=== PATIENT | male | born 1955 | race Caucasian/White ===

== ENCOUNTER → 2017-01-10 | Outpatient (CLI) | payer BC ==
[~2017-01-10] MED LIST: ALBU1AER9 INH; AMIT150T PO; ATRINS INH; BACL20TA PO; CEFD300C2 PO; CHN/1 PO; DXY100 PO; GFNSR600 PO; NEBMAC; NXM/40 PO; OXYC20TA32 PO; OXYC60TA8 PO; PRED10TA PO; RANI150T2 PO; SPRIN/30 INH; SYMIN160 INH; XPNINS1255 INH
--- NOTE | 2017-01-10 10:31 | DIAGNOSTIC IMAGING REPORT ---
CHEST 2 VIEWS ROUTINE CLINICAL HISTORY: Pneumonia. COMPARISON STUDY: Chest radiograph November 10, 2016. FINDINGS: Intrathecal electrodes are noted. Cardiac size is normal. Mediastinal contours are normal. There is no pneumothorax or pleural effusion. There is no evidence of pulmonary edema. Right lower lobe consolidation has nearly completely resolved with there is minimal residual airspace opacity. There is mild lung hyperinflation. IMPRESSION: Near complete resolution of right lower lobe pneumonia. Follow-up chest radiograph in one month is recommended to ensure complete resolution. Electronically signed by: Vivek Zhou M.D. 01/10/2017 10:30 AM Dictated Date/Time: 01/10/2017 10:28 AM
== END | disposition home or self-care (01) ==
LOC: C.RAD1850 10:16
PROVIDERS: ATTEND Allergy & Immunology Allergy
DX: J18.9 Pneumonia, unspecified organism (principal)

== ENCOUNTER 2017-01-30 07:22 | Inpatient (IN) | payer BC, OTHER ==
[~2017-01-30] VITALS: Ht 170.2 cm; Wt 60.0 kg
[2017-01-30] VITALS (8 sets, daily range): BP systolic 131–146; BP diastolic 77–90; PULSE 78–120; TEMP 36.3–37.3; O2SAT 90–99; Ht 170.2 cm; Wt 60.0 kg
[~2017-01-30 07:22] MED LIST changes: -ATRINS INH; -CEFD300C2 PO; -CHN/1 PO; -DXY100 PO; -GFNSR600 PO; -NEBMAC; -PRED10TA PO; -XPNINS1255 INH
[2017-01-30] MEDS ORDERED: SODIUM CHLORIDE 0.9% 1000ML 1,000 ML IV STA (07:50)
[2017-01-30] MEDS ORDERED: IPRATROPIUM BROMIDE NEB SOLN 0.02% 2.5 ML VIAL ONE (07:50)
[2017-01-30] MEDS ORDERED: LEVALBUTEROL 1.25MG/0.5ML NEB INH ONE (07:50)
[2017-01-30] MEDS ORDERED: METHYLPREDNISOLONE 125 MG VIAL IV STA (07:50)
--- NOTE | 2017-01-30 07:50 | EMERGENCY ROOM VISIT NOTE ---
History Report prepared by Cinda: Tiana Stein Under the Supervision of: Dr. Taiwo Pitt D.O. First contact with patient: 07:31 Chief Complaint: RESPIRATORY PROBLEMS Stated Complaint: PNEUMONIA Nursing Triage Summary: I have pnemonia. I am taking antibiotics without relief. Increased sob. patient has audible wheezes in triage. started taking antibiotics on sunday. History of Present Illness The patient is a 61 year old male who presents to the Emergency Room with complaints of constant worsening shortness of breath beginning 2 days ago. The patient states that he has pneumonia and has been taking antibiotics without relief of his symptoms. He reports that he has COPD and quit smoking 5 days ago. He complains of wheezing and chest pain that he has had before with pneumonia. The patient's notes that the patient has been admitted 3 times before for respiratory issues but has not been admitted in the last 3 months. The patient denies being on oxygen at home. The patient notes that he is on Levaquin and Symbicort. Source of History: patient, spouse/significant other Onset: 2 days ago Position: other (respiratory) Quality: other (SOB) Timing: constant, worsening Associated Symptoms: + chest pain Note: Pt complains of wheezing. Review of Systems See above for pertinent positives & negatives. A total of 10 systems reviewed and were otherwise negative. Past Medical & Surgical Medical Problems: (1) COPD (chronic obstructive pulmonary disease) (2) Pneumonia Surgical Problems: (1) History of hernia repair (2) Hx of vasectomy Family History FH: heart disease FHx: lung disease Social History Smoking Status: Former Smoker Alcohol Use: none Drug Use: none Marital Status: Housing Status: lives with family Occupation Status: disabled Current/Historical Medications Scheduled Amitriptyline Hcl (Amitriptyline Hcl), 150 MG PO HS Baclofen (Lioresal), 20 MG PO QID Budesonide/Formoterol Fumarate (Symbicort 160/4.5 Inhaler), 1 PUFFS INH BID Oxycodone Hcl (Oxycontin), 60 MG PO Q12 Oxycodone Hcl (Oxycodone Hcl), 20 MG PO 5XD Ranitidine HCl (Ranitidine HCl), 300 MG PO HS Allergies Coded Allergies: No Known Allergies (Unverified , 01/30/17) pt states NKA Physical Exam Vital Signs Date Time Temp Pulse Resp B/P Pulse Ox O2 Delivery O2 Flow Rate FiO2 01/30/17 08:22 110 28 132/87 93 Room Air 01/30/17 08:10 115 28 134/94 94 Nasal Cannula 4.0 01/30/17 08:02 116 28 134/94 98 Nebulizer 01/30/17 07:58 120 20 93 Nasal Cannula 4.0 01/30/17 07:49 120 32 125/87 93 Nasal Cannula 4.0 01/30/17 07:44 89 Nasal Cannula 4.0 01/30/17 07:38 89 Room Air 01/30/17 07:37 128 01/30/17 07:35 129 32 159/101 87 Room Air 01/30/17 07:35 85 Room Air 01/30/17 07:27 36.5 131 28 125/82 78 Room Air Physical Exam GENERAL: Patient is well appearing and in no acute distress. HEENT: No acute trauma, normocephalic atraumatic, mucous membranes moist, no nasal congestion, no scleral icterus. NECK: No stridor, no adenopathy, no meningismus, trachea is midline. LUNGS: Poor air movement, increased RIGO. HEART: Tachycardic rate and rhythm. No murmurs, rubs, gallops appreciated. ABDOMEN: Soft, nontender, bowel sounds positive, no masses appreciated, no peritonitis. BACK: No midline tenderness, no CVA tenderness EXTREMITIES: Normal motion all extremities, no cyanosis, no edema. NEUROLOGIC: Alert and oriented, no acute motor or sensory deficits, no focal weakness, cranial nerves grossly intact. SKIN: No rash, no jaundice, no diaphoresis. Medical Decision & Procedures ER Provider Diagnostic Interpretation: X ray results and stated below per my interpretation and radiologist interpretation. Chest X-Ray: Shows hyperinflation, no obvious infiltrates. CHEST ONE VIEW PORTABLE FINDINGS: The heart is normal in size. Mid thoracic spinal leads are noted. These remain unchanged in position. No pleural effusions. No pneumothorax. Increased interstitial thickening seen within the periphery of the right lung and left lung base. No new focal lung consolidations. IMPRESSION: Progressive interstitial thickening within the periphery of the right lung and within the left lung base. This could represent an atypical pneumonitis. Follow-up is recommended to ensure resolution. Electronically signed by: Wally Echevarria M.D. 01/30/2017 8:23 AM Dictated Date/Time: 01/30/2017 8:21 AM Laboratory Results 01/30/17 07:40 Red Blood Count 5.02, Mean Corpuscular Volume 89.4, Mean Corpuscular Hemoglobin 31.1, Mean Corpuscular Hemoglobin Concent 34.7, Mean Platelet Volume 9.9, Neutrophils (%) (Auto) 55.7, Lymphocytes (%) (Auto) 19.3, Monocytes (%) (Auto) 13.0, Eosinophils (%) (Auto) 8.3, Basophils (%) (Auto) 1.0, Neutrophils # (Auto ) 6.48, Lymphocytes # (Auto) 2.25, Monocytes # (Auto) 1.51, Eosinophils # (Auto ) 0.96, Basophils # (Auto) 0.12 01/30/17 07:40 Test 01/30/17 07:40 01/30/17 07:43 01/30/17 08:02 White Blood Count 11.63 K/uL (4.8-10.8) Red Blood Count 5.02 M/uL (4.7-6.1) Hemoglobin 15.6 g/dL (14.0-18.0) Hematocrit 44.9 % (42-52) Mean Corpuscular Volume 89.4 fL (80-100) Mean Corpuscular Hemoglobin 31.1 pg (25-34) Mean Corpuscular Hemoglobin Concent 34.7 g/dl (32-36) Platelet Count 349 K/uL (130-400) Mean Platelet Volume 9.9 fL (7.4-10.4) Neutrophils (%) (Auto) 55.7 % Lymphocytes (%) (Auto) 19.3 % Monocytes (%) (Auto) 13.0 % Eosinophils (%) (Auto) 8.3 % Basophils (%) (Auto) 1.0 % Neutrophils # (Auto) 6.48 K/uL (1.4-6.5) Lymphocytes # (Auto) 2.25 K/uL (1.2-3.4) Monocytes # (Auto) 1.51 K/uL (0.11-0.59) Eosinophils # (Auto) 0.96 K/uL (0-0.5) Basophils # (Auto) 0.12 K/uL (0-0.2) RDW Standard Deviation 43.6 fL (36.4-46.3) RDW Coefficient of Variation 13.3 % (11.5-14.5) Immature Granulocyte % (Auto) 2.7 % Immature Granulocyte # (Auto) 0.31 K/uL (0.00-0.02) Anion Gap 9.0 mmol/L (3-11) Est Creatinine Clear Calc Drug Dose 71.1 ml/min Estimated GFR () 101.1 Estimated GFR (Non- 87.3 BUN/Creatinine Ratio 13.5 (10-20) Calcium Level 9.2 mg/dl (8.5-10.1) Total Bilirubin 0.2 mg/dl (0.2-1) Direct Bilirubin < 0.1 mg/dl (0-0.2) Aspartate Amino Transf (AST/SGOT) 22 U/L (15-37) Alanine Aminotransferase (ALT/SGPT) 22 U/L (12-78) Alkaline Phosphatase 103 U/L (45-117) Troponin I < 0.015 ng/ml (0-0.045) C-Reactive Protein 17.30 mg/dl (0-0.29) Total Protein 8.6 gm/dl (6.4-8.2) Albumin 3.1 gm/dl (3.4-5.0) Lipase 62 U/L (73-393) Bedside Blood Gas pH (LAB) 7.40 (7.35-7.45) Bedside Blood Gas pCO2 (LAB) 55 mmHg (35-46) Bedside Blood Gas pO2 (LAB) 47 mmHg (80-95) Bedside Blood Gas HCO3 (LAB) 34 meq/L (19-24) Bedside Blood Gas Total CO2 36 mEq/l (24-31) Bedside Blood Gas Base Excess (LAB) 9.0 meq/L (-9-1.8) Bedside Blood Gas O2 Saturation 81.0 % (90-95) Laboratory results as reviewed by me. Medications Administered Medications (Trade) Dose Ordered Sig/Geoff Route Start Time Stop Time Status Last Admin Dose Admin Levalbuterol (Xopenex 1.25MG/ 0.5ML Neb) 1.25 mg STK-MED ONCE INH 01/30/17 07:50 01/30/17 07:53 DC 01/30/17 07:58 1.25 MG Ipratropium [place] (Atrovent 0.02% 0.5MG/2.5ML Neb) 0.5 mg STK-MED ONCE .ROUTE 01/30/17 07:50 01/30/17 07:53 DC 01/30/17 07:57 0.5 MG Methylprednisolone Sodium Succinate 125 mg 125 mg NOW STAT IV 01/30/17 07:50 01/30/17 07:55 DC 01/30/17 08:01 125 MG Sodium Chloride 1,000 ml @ 999 mls/hr Q1H1M STAT IV 01/30/17 07:50 01/30/17 08:50 01/30/17 07:58 999 MLS/HR Ceftriaxone Sodium/Dextrose (Rocephin Inj/D5 50ml) 70 ml @ 100 mls/hr ONE STAT IV 01/30/17 07:56 01/30/17 08:37 01/30/17 08:21 100 MLS/HR ECG Indication: SOB/dyspnea Rate (beats per minute): 130 Rhythm: sinus tachycardia Findings: nonspecific-ST abn, other (normal axis, normal intervals, poor technical EKG) Comparison ECG Date: 02/17/15 Change: Nonspecific ST segment abnormalities are new. ED Course 0731: The patient was evaluated in room B1. A complete history and physical exam was performed. 0750: Sodium Chloride 1000 ml @ 999 mls/hr IV, Solu-Medrol IV 125mg IV, Ipratropium [place] 0.5mg IV, Levalbuterol 1.25mg INH. 0756: Ceftriaxone Sodium 2000mg/Dextrose 70ml @ 100mls/hr IV. 0810: I discussed the patient's case with Dr. Brown. He will evaluate the patient for further management. 0817: Upon reevaluation, the patient is doing well. Discussed results and treatment plan with the patient. He verbalized understanding and agreement with the treatment plan. The patient will be evaluated for further management. Medical Decision Differential diagnosis: Etiologies such as infections, reactive airway disease, pneumonia, pneumothorax , COPD, CHF, cardiac ischemia, pulmonary embolism, musculoskeletal, gastrointestinal, as well as others were entertained. Consults Time Called: 08 Consulting Physician: Dr. Brown - [facility] Returned Call: 08 I discussed the patient's case with Dr. Brown. He will evaluate the patient for further management. Impression Primary Impression: COPD exacerbation Additional Impressions: Tobacco dependence Tachycardia Chest pain Scribe Attestation The scribe's documentation has been prepared under my direction and personally reviewed by me in its entirety. I confirm that the note above accurately reflects all work, treatment, procedures, and medical decision making performed by me. Departure Information Dispostion Being Evaluated By Hospitalist Referrals Tangela Martinez M.D. (PCP) Patient Instructions My [facility] Problem Qualifiers
[2017-01-30] MEDS ORDERED: CEFTRIAXONE SOD INJ 2,000 MG in DEXTROSE 5% 50ML 50 ML IV STA (07:56)
[2017-01-30 08:00] LABS: ISTAT ARTERIAL BLOOD GAS HCO3 34 meq/L (19-24); ISTAT ARTERIAL BLOOD GAS PCO2 55 mmHg (35-46); ISTAT ARTERIAL BLOOD GAS PO2 47 mmHg (80-95); ISTAT CARBON DIOXIDE 36 mEq/l (24-31)
[2017-01-30 08:11] LABS: BASO ABS # 0.12 K/uL (0-0.2); COMPLETE YES; EOS % 8.3 %; HEMATOCRIT 44.9 % (42-52); IG% 2.7 %; LYMPH % 19.3 %; LYMPH ABS # 2.25 K/uL (1.2-3.4); MEAN CELL VOLUME 89.4 fL (80-100); MEAN CORPUSCULAR HEMOGLOBIN 31.1 pg (25-34); MEAN CORPUSCULAR HGB CONC 34.7 g/dl (32-36); MEAN PLATELET VOLUME 9.9 fL (7.4-10.4); NEUT % 55.7 %; PLATELET COUNT 349 K/uL (130-400); RED BLOOD COUNT 5.02 M/uL (4.7-6.1); WHITE BLOOD COUNT 11.63 K/uL (4.8-10.8)
[2017-01-30 08:18] LABS: ALT/SGPT 22 U/L (12-78); BLOOD UREA NITROGEN 13 mg/dl (7-18); BUN/CREATININE RATIO 13.5 (10-20); CALCIUM 9.2 mg/dl (8.5-10.1); CARBON DIOXIDE 33 mmol/L (21-32); CHLORIDE 98 mmol/L (98-107); CREATININE 0.95 mg/dl (0.60-1.40); GLUCOSE 116 mg/dl (70-99); POTASSIUM 3.8 mmol/L (3.5-5.1); SODIUM 140 mmol/L (136-145)
[2017-01-30 08:22] LABS: ALKALINE PHOSPHATASE 103 U/L (45-117); AST/SGOT 22 U/L (15-37)
--- NOTE | 2017-01-30 08:25 | DIAGNOSTIC IMAGING REPORT ---
CHEST ONE VIEW PORTABLE HISTORY: Pneumonia. COMPARISON: Chest 01/10/2017. FINDINGS: The heart is normal in size. Mid thoracic spinal leads are noted. These remain unchanged in position. No pleural effusions. No pneumothorax. Increased interstitial thickening seen within the periphery of the right lung and left lung base. No new focal lung consolidations. IMPRESSION: Progressive interstitial thickening within the periphery of the right lung and within the left lung base. This could represent an atypical pneumonitis. Follow-up is recommended to ensure resolution. Electronically signed by: Wally Echevarria M.D. 01/30/2017 8:23 AM Dictated Date/Time: 01/30/2017 8:21 AM
[2017-01-30] MEDS ORDERED: AZITHROMYCIN IV 500 MG in DEXTROSE 5% 250ML 250 ML IV STA (08:55)
[2017-01-30] MEDS ORDERED: ALUMINUM/MAGNESIUM/SIMETH (MAALOX MAX) 30 ML UDC PO PRN (09:00)
[2017-01-30] MEDS ORDERED: CEFEPIME IV SCH (09:00)
[2017-01-30] MEDS ORDERED: OXYCODONE HCL 20 MG TABCR (OXYCONTIN) PO SCH (09:00)
[2017-01-30] MEDS ORDERED: POLYETHYLENE (MIRALAX) 17 GM PACK PO PRN (09:00)
[2017-01-30] MEDS ORDERED: ONDANSETRON INJ 2 MG/ML 2 ML VIAL IV PRN (09:00)
[2017-01-30] MEDS ORDERED: CEFTRIAXONE SOD INJ 1,000 MG in DEXTROSE 5% 50ML 50 ML IV SCH (09:00)
[2017-01-30] MEDS ORDERED: TIOTROPIUM BROMIDE 5 PUFF/90 MCG INH INH SCH (09:00)
[2017-01-30] MEDS ORDERED: ACETAMINOPHEN 325 MG TAB PO PRN (09:00)
[2017-01-30] MEDS ORDERED: BUDESONIDE/FORMOTEROL FUMARATE 160/4.5 60 PUFFS/INHALER INH SCH (09:00)
[2017-01-30] MEDS ORDERED: DEXTROSE 5% IV SCH (09:00)
--- NOTE | 2017-01-30 09:11 | History and Physical ---
History & Physical Date & Time of Service: Jan 30, 2017 at 08:55 Chief Complaint: Pneumonia Primary Care Physician: Tangela Martinez M.D. History of Present Illness Source: patient, spouse, clinic records, hospital records This patient is a pleasant 61-year-old male that presents emergency department complaining of worsening shortness of breath over the last week. The patient saw his primary care physician approximately 1 month ago and was treated with Levaquin for pneumonia. His symptoms temporarily got somewhat better. They returned approximately 1 week ago. He was put back on Levaquin 3 days ago at an increased dose with minimal improvement. The patient has a history of COPD. He does not typically wear oxygen at home. He does not take daily steroids. He does not have a nebulizer at home. He has been trying his albuterol MDI with no relief of his symptoms. The patient denies any fever or chills. He has had chest pain in both the anterior and posterior portions of his chest particularly with coughing. The patient's son was also recently sick with similar symptoms. He does admit to also having a sore throat and a runny nose. He has also had intermittent headaches over the last several days. The patient hasn't been admitted a few times in the past for pneumonia. He has never been intubated. Of note, the patient also has been losing weight. He reports approximately 40 pound weight loss in the last 4 years. Past Medical/Surgical History Medical Problems: (1) COPD (chronic obstructive pulmonary disease) Status: Chronic (2) Pneumonia Status: Chronic Chronic lower back pain status post neurostimulator placement GERD Surgical Problems: (1) History of hernia repair Status: Resolved (2) Hx of vasectomy Status: Resolved Family History FH: heart disease FHx: lung disease Social History Smoking Status: Former Smoker (quit smoking 5 days ago. Admits to being a heavy smoker in the past more than 1 pack per day) Alcohol Use: socially Drug Use: none Marital Status: Housing status: lives with significant other Occupational Status: disabled Immunizations History of Influenza Vaccine: Yes History of Tetanus Vaccine?: Yes History of Pneumococcal: No History of Hepatitis B Vaccine: No Multi-Drug Resistant Organisms History of MDRO: No Allergies Coded Allergies: No Known Allergies (Unverified , 01/30/17) pt states NKA Home Medications Scheduled Amitriptyline Hcl (Amitriptyline Hcl), 150 MG PO HS Baclofen (Lioresal), 20 MG PO QID Budesonide/Formoterol Fumarate (Symbicort 160/4.5 Inhaler), 1 PUFFS INH BID Oxycodone Hcl (Oxycontin), 60 MG PO Q12 Oxycodone Hcl (Oxycodone Hcl), 20 MG PO 5XD Ranitidine HCl (Ranitidine HCl), 300 MG PO HS Review of Systems 10 system review performed and negative unless noted in HPI or below Physical Exam Vital Signs Date Time Temp Pulse Resp B/P Pulse Ox O2 Delivery O2 Flow Rate FiO2 01/30/17 08:22 110 28 132/87 93 Room Air 01/30/17 08:10 115 28 134/94 94 Nasal Cannula 4.0 01/30/17 08:02 116 28 134/94 98 Nebulizer 01/30/17 07:58 120 20 93 Nasal Cannula 4.0 01/30/17 07:49 120 32 125/87 93 Nasal Cannula 4.0 01/30/17 07:44 89 Nasal Cannula 4.0 01/30/17 07:38 89 Room Air 01/30/17 07:37 128 01/30/17 07:35 129 32 159/101 87 Room Air 01/30/17 07:35 85 Room Air 01/30/17 07:27 36.5 131 28 125/82 78 Room Air GENERAL: 61-year-old male. Chronically ill in appearance. Appears older than stated age. SKIN: The skin was warm and dry HEAD: Normocephalic atraumatic. MOUTH: Mucous membranes slightly dry NECK: Supple without nuchal rigidity. No lymphadenopathy. No JVD. HEART: Tachycardic, regular rhythm without murmurs gallops or rubs. LUNGS: Diffuse wheezing throughout with decreased breath sounds at the bases bilaterally. Few crackles noted at the right base. Positive tachypnea and accessory muscle use noted. Saturating 95% on 4 L of oxygen per nasal cannula. ABDOMEN: Positive bowel sounds x 4.Soft, nontender, without organomegaly. No guarding or rebound tenderness. MUSCULOSKELETAL: No erythema, or edema noted. No tenderness to palpation. Strength 5/5 throughout. NEURO: Patient was alert and oriented to person place and time. Normal sensation to touch. No focal neurological deficits. Diagnostics Laboratory Results 01/30/17 07:40 Red Blood Count 5.02, Mean Corpuscular Volume 89.4, Mean Corpuscular Hemoglobin 31.1, Mean Corpuscular Hemoglobin Concent 34.7, Mean Platelet Volume 9.9, Neutrophils (%) (Auto) 55.7, Lymphocytes (%) (Auto) 19.3, Monocytes (%) (Auto) 13.0, Eosinophils (%) (Auto) 8.3, Basophils (%) (Auto) 1.0, Neutrophils # (Auto ) 6.48, Lymphocytes # (Auto) 2.25, Monocytes # (Auto) 1.51, Eosinophils # (Auto ) 0.96, Basophils # (Auto) 0.12 Test 01/30/17 07:40 01/30/17 07:43 01/30/17 08:02 01/30/17 08:48 White Blood Count 11.63 K/uL (4.8-10.8) Red Blood Count 5.02 M/uL (4.7-6.1) Hemoglobin 15.6 g/dL (14.0-18.0) Hematocrit 44.9 % (42-52) Mean Corpuscular Volume 89.4 fL (80-100) Mean Corpuscular Hemoglobin 31.1 pg (25-34) Mean Corpuscular Hemoglobin Concent 34.7 g/dl (32-36) Platelet Count 349 K/uL (130-400) Mean Platelet Volume 9.9 fL (7.4-10.4) Neutrophils (%) (Auto) 55.7 % Lymphocytes (%) (Auto) 19.3 % Monocytes (%) (Auto) 13.0 % Eosinophils (%) (Auto) 8.3 % Basophils (%) (Auto) 1.0 % Neutrophils # (Auto) 6.48 K/uL (1.4-6.5) Lymphocytes # (Auto) 2.25 K/uL (1.2-3.4) Monocytes # (Auto) 1.51 K/uL (0.11-0.59) Eosinophils # (Auto) 0.96 K/uL (0-0.5) Basophils # (Auto) 0.12 K/uL (0-0.2) RDW Standard Deviation 43.6 fL (36.4-46.3) RDW Coefficient of Variation 13.3 % (11.5-14.5) Immature Granulocyte % (Auto) 2.7 % Immature Granulocyte # (Auto) 0.31 K/uL (0.00-0.02) Anion Gap 9.0 mmol/L (3-11) Est Creatinine Clear Calc Drug Dose 71.1 ml/min Estimated GFR () 101.1 Estimated GFR (Non- 87.3 BUN/Creatinine Ratio 13.5 (10-20) Calcium Level 9.2 mg/dl (8.5-10.1) Total Bilirubin 0.2 mg/dl (0.2-1) Direct Bilirubin < 0.1 mg/dl (0-0.2) Aspartate Amino Transf (AST/SGOT) 22 U/L (15-37) Alanine Aminotransferase (ALT/SGPT) 22 U/L (12-78) Alkaline Phosphatase 103 U/L (45-117) Troponin I < 0.015 ng/ml (0-0.045) C-Reactive Protein 17.30 mg/dl (0-0.29) Total Protein 8.6 gm/dl (6.4-8.2) Albumin 3.1 gm/dl (3.4-5.0) Lipase 62 U/L (73-393) Bedside Blood Gas pH (LAB) 7.40 (7.35-7.45) Bedside Blood Gas pCO2 (LAB) 55 mmHg (35-46) Bedside Blood Gas pO2 (LAB) 47 mmHg (80-95) Bedside Blood Gas HCO3 (LAB) 34 meq/L (19-24) Bedside Blood Gas Total CO2 36 mEq/l (24-31) Bedside Blood Gas Base Excess (LAB) 9.0 meq/L (-9-1.8) Bedside Blood Gas O2 Saturation 81.0 % (90-95) Results Past 24 Hours Test 01/30/17 07:40 01/30/17 07:43 01/30/17 08:02 Range/Units White Blood Count 11.63 4.8-10.8 K/uL Red Blood Count 5.02 4.7-6.1 M/uL Hemoglobin 15.6 14.0-18.0 g/dL Hematocrit 44.9 42-52 % Mean Corpuscular Volume 89.4 80-100 fL Mean Corpuscular Hemoglobin 31.1 25-34 pg Mean Corpuscular Hemoglobin Concent 34.7 32-36 g/dl Platelet Count 349 130-400 K/uL Mean Platelet Volume 9.9 7.4-10.4 fL Neutrophils (%) (Auto) 55.7 % Lymphocytes (%) (Auto) 19.3 % Monocytes (%) (Auto) 13.0 % Eosinophils (%) (Auto) 8.3 % Basophils (%) (Auto) 1.0 % Neutrophils # (Auto) 6.48 1.4-6.5 K/uL Lymphocytes # (Auto) 2.25 1.2-3.4 K/uL Monocytes # (Auto) 1.51 0.11-0.59 K/uL Eosinophils # (Auto) 0.96 0-0.5 K/uL Basophils # (Auto) 0.12 0-0.2 K/uL RDW Standard Deviation 43.6 36.4-46.3 fL RDW Coefficient of Variation 13.3 11.5-14.5 % Immature Granulocyte % (Auto) 2.7 % Immature Granulocyte # (Auto) 0.31 0.00-0.02 K/uL Sodium Level 140 136-145 mmol/L Potassium Level 3.8 3.5-5.1 mmol/L Chloride Level 98 98-107 mmol/L Carbon Dioxide Level 33 21-32 mmol/L Anion Gap 9.0 3-11 mmol/L Blood Urea Nitrogen 13 7-18 mg/dl Creatinine 0.95 0.60-1.40 mg/dl Est Creatinine Clear Calc Drug Dose 71.1 ml/min Estimated GFR () 101.1 Estimated GFR (Non- 87.3 BUN/Creatinine Ratio 13.5 10-20 Random Glucose 116 70-99 mg/dl Calcium Level 9.2 8.5-10.1 mg/dl Total Bilirubin 0.2 0.2-1 mg/dl Direct Bilirubin < 0.1 0-0.2 mg/dl Aspartate Amino Transf (AST/SGOT) 22 15-37 U/L Alanine Aminotransferase (ALT/SGPT) 22 12-78 U/L Alkaline Phosphatase 103 45-117 U/L Troponin I < 0.015 0-0.045 ng/ml C-Reactive Protein 17.30 0-0.29 mg/dl Total Protein 8.6 6.4-8.2 gm/dl Albumin 3.1 3.4-5.0 gm/dl Lipase 62 73-393 U/L Bedside Blood Gas pH (LAB) 7.40 7.35-7.45 Bedside Blood Gas pCO2 (LAB) 55 35-46 mmHg Bedside Blood Gas pO2 (LAB) 47 80-95 mmHg Bedside Blood Gas HCO3 (LAB) 34 19-24 meq/L Bedside Blood Gas Total CO2 36 24-31 mEq/l Bedside Blood Gas Base Excess (LAB) 9.0 -9-1.8 meq/L Bedside Blood Gas O2 Saturation 81.0 90-95 % Microbiology Results 01/30/17 Blood Culture, Received Pending 01/30/17 Blood Culture, Received Pending Diagnostic Radiology CHEST ONE VIEW PORTABLE HISTORY: Pneumonia. COMPARISON: Chest 01/10/2017. FINDINGS: The heart is normal in size. Mid thoracic spinal leads are noted. These remain unchanged in position. No pleural effusions. No pneumothorax. Increased interstitial thickening seen within the periphery of the right lung and left lung base. No new focal lung consolidations. IMPRESSION: Progressive interstitial thickening within the periphery of the right lung and within the left lung base. This could represent an atypical pneumonitis. Follow-up is recommended to ensure resolution. Electronically signed by: Wally Echevarria M.D. 01/30/2017 8:23 AM Dictated Date/Time: 01/30/2017 8:21 AM The status of this report is Signed. Draft = Not yet reviewed or approved by Radiologist. Signed = Reviewed and approved by Radiologist. Impression Assessment and Plan 61-year-old male presents emergency department with a nonproductive cough and shortness of breath, chest x-ray consistent with an atypical pneumonitis. Acute on chronic hypoxic respiratory failure secondary to pneumonia/COPD exacerbation-not responding to outpatient therapy with Levaquin -Admit to medical floor -Continuous pulse ox -f/u influenza -Duonebs every 4 hrs scheduled, every 2 hrs prn -solumedrol 40 mg q 8 hr -continue Cefepime 1 G IV BID + Azithromycin 500 mg IV daily -continue O2 to keep sat >88% -Continue outpatient Spiriva and Symbicort -Patient will need set up for a nebulizer at home -will also check echo Chronic lower back pain-medications verified. Patient follows with [facility] pain management -Continue outpatient regimen as follows: Oxycodone 20 mg up to 5 times daily OxyContin 60 mg BID Baclofen 20 mg 4 times daily GERD -Pantoprazole 40 mg daily while in house -Upon discharge, resume ranitidine 300 mg HS DVT prophylaxis -Lovenox 40 mg subQ daily -TEDS, SCDs CODE STATUS -LEVEL I FULL CODE DISPO -Anticipate DC home with self-care -Patient will need a nebulizer at home PA Physician Supervision Note: I interviewed and examined the patient. Discussed with Dr. Nkechi Ignacio PAC and agree with findings and plan as documented in the note. 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 Documented By: Kevin Aaron Level of Care Med/Surg VTE Prophylaxis VTE Risk Assessment Done? Y/N: Yes Risk Level: Low Given or contraindicated: Enoxaparin (Lovenox)SQ, T.E.D. Stockings, SCD's
[2017-01-30 09:41] LABS: INFLUENZA A PCR Neg for Influ A (NEG); INFLUENZA B PCR Neg for Influ B (NEG)
[2017-01-30] MEDS ORDERED: [UNRECOGNIZED DRUG - REMARK] PRN (10:45)
[2017-01-30] MEDS ORDERED: AZITHROMYCIN 500 MG / D5W 250 ML IV SCH ×2 (11:00)
[2017-01-30] MEDS: ALBUT/IPRATROP 3MG/0.5MG NEB 3 ML VIAL INH SCH ×3 (11:19→20:05)
[2017-01-30] MEDS: OXYCODONE HCL IR 5 MG TAB (IMMEDIATE RELEASE) PO PRN ×3 (11:42→21:30)
[2017-01-30] MEDS: BACLOFEN TAB 20 MG TAB PO SCH ×3 (11:42→21:31)
[2017-01-30 12:12] LABS: INR 1.1 (0.9-1.1); PARTIAL THROMBOPLASTIN RATIO 1.2; PROTHROMBIN TIME (PATIENT) 11.6 SECONDS (9.0-12.0)
[2017-01-30 12:32] LABS: URINE APPEARANCE CLEAR (CLEAR); URINE BILIRUBIN NEG (NEG); URINE COLOR DK YELLOW; URINE EPITHELIAL CELL AUTO 0-5 /lpf (0-5); URINE NITRITE NEG (NEG); URINE PH 5.5 (4.5-7.5); URINE SPECIFIC GRAVITY 1.035 (1.000-1.030); UROBILINOGEN NEG (NEG)
[2017-01-30 12:38] LABS: MANUAL MICROSCOPIC REQUIRED? NO; REVIEW REQ? NO
[2017-01-30] MEDS: ENOXAPARIN 40 MG/0.4 ML SYR SQ SCH (14:00)
[2017-01-30] MEDS: DOXYCYCLINE HYCLATE 100 MG CAP PO SCH ×2 (14:24→21:32)
--- NOTE | 2017-01-30 15:28 | PULMONARY CONSULTATION ---
DATE OF CONSULTATION: 01/30/2017 TIME: 02:15 p.m. PRIMARY CARE PROVIDER: Tangela Martinez MD REPORT OF CONSULTATION: The patient was seen in room #410. She is a 61-year-old male with a history of severe COPD. I have seen this patient in my office. His baseline FEV1 is only 28% of predicted. He is currently complaining of severe shortness of breath. This has been building up over the course of a couple of days. He has been having recurrent problems, however, for a few months. In October, he was seen in our office with breathing difficulty and an x-ray showed a pneumonic infiltrate on the right side in the mid lung field area. Followup x-ray showed clearance or near clearance of the pneumonia. He then states that he saw his family doctor 3 weeks ago and was told that he had pneumonia. He apparently had gone to the urgent care through [facility]. Apparently, he was given some antibiotics at that time. I was able to find an x-ray done January 10 and I am suspecting that was the case. That did show near complete resolution of the right lower lobe pneumonia seen previously. That x-ray appears to have been ordered through our office. The patient insists, however, he had an x-ray through [facility], but it was done through the [facility] system. I cannot document that with certainty. The patient has a history of a lung nodule and indeed, we were going to do a CAT scan in December. However, the patient canceled appointments on 3 different occasions. He tells me that this may have been related to the fact we have to collect an extra fee as a specialist that is not covered by his insurance. This morning, he was very short of breath. He states he told his that they just had to go to the ER. In the ER, he was tachycardic with a heart rate of 130. He was tachypneic with a respiratory rate of 32. Oxygen saturation was as low as 78%. He is feeling somewhat better now. He was bringing up thick yellow sputum. He has not coughed blood at any time. The sputum has been for 5 or 6 days. The patient does have a history of chronic respiratory failure. He was hospitalized with an exacerbation of COPD back in February of 2015. The patient has been a long-term smoker. This has been about 1-1/2 packs per day for 44 years. He states he has not smoked now for 6 days. PAST SURGICAL HISTORY: 1. Hernia repair in 2002. 2. Vasectomy in 1982. 3. Neurostimulator inserted into his back. PAST MEDICAL HISTORY: 1. Degenerative joint disease of the spine. 2. GERD. 3. Spinal stenosis. FAMILY HISTORY: Father is living, age 87, has valvular heart disease and COPD. Mother is living, age 83 and has obesity. 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 He states he suffered an injury in the . He has been disabled since 2004. MEDICATIONS: At home, 1. Amitriptyline 150 mg at bedtime. 2. Baclofen 20 mg q.i.d. 3. Symbicort 160/4.5 one puff b.i.d. 4. OxyContin 60 mg q. 12 hours. 5. Oxycodone 20 mg 5 times per day. 6. Ranitidine 300 mg at bedtime. 7. Spiriva 1 daily. 8. ProAir p.r.n. ALLERGIES: She has no known allergies. REVIEW OF SYSTEMS: GENERAL: The patient's energy level has been very poor. NEUROLOGIC: He denies syncope or near syncope. OPHTHALMIC: Denies visual complaints. ENT: Denies nasal congestion or coryza. CHEST: He states that he has had some chest pains today associated with coughing and deep breathing. GASTROINTESTINAL: He has had weight loss in the past, but he says that has stabilized. He has lost about 40 pounds over 4 years or so. Denies bowel complaints. GENITOURINARY: His urinary stream has been very poor. He was wondering he might have prostate problems. His urination stops and starts. He is taking Spiriva, which can affect the urinary symptoms. EXTREMITIES: There has been no edemas. DERMATOLOGIC: Denies rashes. Remainder of the review of systems is negative. PHYSICAL EXAMINATION: GENERAL: The patient is a 61-year-old male who was cooperative, alert and oriented. He was fairly comfortable at rest. He is afebrile. HEENT: Pupils were reactive. Nares were clear. Mouth exam was negative. NECK: Palpation of the neck reveals no lymph nodes. HEART: Rate currently is 100 per minute. Blood pressure 133/84. Respiratory rate 22 breaths per minute. LUNGS: Lung rdz revealed severely diminished breath sounds. There was modest rhonchi heard on expiration and there was marked prolongation to the expiratory phase of respiration. Saturation is 93% on 3 liters. ABDOMEN: Soft. Bowel sounds were present. There was no tenderness to palpation, masses or organomegaly. EXTREMITIES: Showed no cyanosis, clubbing or edema. The patient's chest x-ray showed some interstitial thickening in the periphery of the right lung and within the left base. It was unclear if this represented an acute pneumonitis or not. LABORATORY DATA: CBC showed a white count of 11.63. Hemoglobin 15.6. Platelets 349,000. INR was 1.1 and PTT was 32.4. Urinalysis showed +1 protein, but was otherwise unremarkable. Blood gas showed a pH of 7.40 with a pCO2 of 55 and a pO2 of 47 on a nonspecified amount of oxygen. Electrolytes show sodium 140, potassium 3.8, chloride 98, and bicarbonate 33. BUN 13 and creatinine 0.95. Blood sugar 116. C-reactive protein was severely elevated at 17.3. Troponin was negative. TSH was 1.2. Flu test was negative. IMPRESSIONS: 1. Acute respiratory failure with hypoxia and hypercarbia. 2. Chronic obstructive pulmonary disease with exacerbation. 3. Lung nodule by history. 4. Possible benign prostatic hypertrophy. COMMENTS AND RECOMMENDATIONS: I believe the Spiriva should be discontinued. This will give him a chance to if his urinary flow improves over the next 2 weeks. Would substitute with DuoNebs by nebulizer. I think the patient probably would benefit from having a nebulizer at home and he seems open to this. He is on cefepime for antibiotics. He is on methylprednisolone 40 mg IV q. 8 hours. The Symbicort is only at 1 puff b.i.d. and I will increase that to 2 puffs b.i.d. The patient is not at all open to having home oxygen. I explained to him that it can best be addressed at the time of discharge. He indicated he would refuse any oxygen. We had planned to do a CAT scan of the chest on the patient last month, but he kept canceling. In light of this, we will do the CAT scan while he is here in the hospital to evaluate the previously seen nodule as well as to evaluate any other problems he might be having. He denies any allergies. Thank you for asking me to assist in his care.
[2017-01-30] MEDS ORDERED: OPTIRAY 320 IV PRN (15:30)
--- NOTE | 2017-01-30 16:13 | DIAGNOSTIC IMAGING REPORT ---
CHEST CTA for PULMONARY ARTERIES CT DOSE: 336.36 mGy.cm HISTORY: Chest pain dyspnea TECHNIQUE: Multiaxial CT images of the chest were performed following the intravenous administration of contrast to evaluate the pulmonary arteries. Maximal intensity projection images were also obtained. COMPARISON STUDY: 12/31/2015 FINDINGS: Images are negative for pulmonary embolus. No evidence for cardiac enlargement. Poorly defined right lower lobe parenchymal infiltrate. Baseline emphysematous change. Slight peribronchial thickening throughout. Chronic apical fibrotic change. Minimal dependent bibasilar atelectasis. IMPRESSION: 1. Study is negative for pulmonary embolus. 2. Mild parenchymal infiltrate right lower lobe superimposed upon chronic peribronchial and interstitial change Electronically signed by: Rubén Chavarria M.D. 01/30/2017 4:12 PM Dictated Date/Time: 01/30/2017 4:08 PM
[2017-01-30] MEDS: METHYLPREDNISOLONE IV 40 MG in SYRINGE 0 ML IV SCH ×2 (17:34→23:32)
[2017-01-30] MEDS: OXYCODONE HCL 20 MG TABCR (OXYCONTIN) PO PRN (21:29)
[2017-01-30] MEDS: CEFEPIME IV 2000 MG in DEXTROSE 5% 100ML IV SCH (21:29)
[2017-01-30] MEDS: RANITIDINE HCL 150 MG TAB PO SCH (21:31)
[2017-01-30] MEDS: BUDESONIDE/FORMOTEROL FUMARATE 160/4.5 60 PUFFS/INHALER INH SCH (21:33)
[2017-01-30] MEDS ORDERED: AMITRIPTYLINE HCL 100 MG TAB PO ONE (22:44)
[2017-01-31] VITALS (9 sets, daily range): BP systolic 129–161; BP diastolic 82–92; PULSE 61–125; TEMP 36.5–37; O2SAT 92–95
[2017-01-31 06:33] LABS: BASO % 0.1 %; BASO ABS # 0.01 K/uL (0-0.2); COMPLETE YES; EOS % 0.1 %; HEMATOCRIT 35.2 % (42-52); IG% 1.9 %; LYMPH % 14.2 %; LYMPH ABS # 1.26 K/uL (1.2-3.4); MEAN CELL VOLUME 85.2 fL (80-100); MEAN CORPUSCULAR HEMOGLOBIN 29.5 pg (25-34); MEAN CORPUSCULAR HGB CONC 34.7 g/dl (32-36); MEAN PLATELET VOLUME 9.3 fL (7.4-10.4); NEUT % 78.7 %; PLATELET COUNT 274 K/uL (130-400); RED BLOOD COUNT 4.13 M/uL (4.7-6.1); WHITE BLOOD COUNT 8.86 K/uL (4.8-10.8)
[2017-01-31 07:00] LABS: BUN/CREATININE RATIO 19.1 (10-20); CALCIUM 8.6 mg/dl (8.5-10.1); CREATININE 0.66 mg/dl (0.60-1.40); POTASSIUM 4.5 mmol/L (3.5-5.1)
[2017-01-31] MEDS: ALBUT/IPRATROP 3MG/0.5MG NEB 3 ML VIAL INH SCH ×2 (07:30→10:53)
[2017-01-31] MEDS ORDERED: VARENICLINE 0.5 MG TAB PO SCH (08:00)
[2017-01-31] MEDS ORDERED: VARENICLINE (CHANTIX) 1 MG TAB PO SCH (08:00)
[2017-01-31] MEDS: DOXYCYCLINE HYCLATE 100 MG CAP PO SCH ×2 (08:16→20:32)
[2017-01-31] MEDS: BUDESONIDE/FORMOTEROL FUMARATE 160/4.5 60 PUFFS/INHALER INH SCH ×2 (08:16→19:45)
[2017-01-31] MEDS: OXYCODONE HCL 20 MG TABCR (OXYCONTIN) PO PRN ×2 (08:16→20:29)
[2017-01-31] MEDS: BACLOFEN TAB 20 MG TAB PO SCH ×4 (08:16→20:31)
[2017-01-31] MEDS: METHYLPREDNISOLONE IV 40 MG in SYRINGE 0 ML IV SCH ×2 (08:17→16:44)
[2017-01-31] MEDS: CEFEPIME IV 2000 MG in DEXTROSE 5% 100ML IV SCH ×2 (08:18→19:44)
--- NOTE | 2017-01-31 11:25 | Hospitalist Progress Note ---
Hospitalist Progress Note Date of Service Jan 31, 2017. (Nkechi Ignacio PA-C) Subjective Pt evaluation today including: conversation w/ patient, physical exam, chart review, lab review, review of studies, review of inpatient medication list Continues to complain of shortness of breath particularly with mild exertion. Nonproductive cough. No fever or chills. Denies chest pain, heart palpitations or dizziness. Additional Comments: 6 system review negative. Please see pertinent positives in the history of present illness section. (Nkechi Ignacio PA-C) Objective Vital Signs Date Time Temp Pulse Resp B/P Pulse Ox O2 Delivery O2 Flow Rate FiO2 01/31/17 10:53 125 16 94 Nasal Cannula 3.0 01/31/17 08:00 Nasal Cannula 3.0 01/31/17 07:30 103 16 95 Nasal Cannula 3.0 01/31/17 07:26 92 Nasal Cannula 2.0 01/31/17 07:16 36.5 104 16 129/82 92 Nasal Cannula 2.0 01/31/17 00:15 Nasal Cannula 3.0 01/30/17 23:29 37.3 115 16 131/77 90 Room Air 01/30/17 20:06 112 12 93 Nasal Cannula 3.0 01/30/17 16:10 99 Nasal Cannula 3.0 01/30/17 16:01 36.3 98 16 146/90 99 Nasal Cannula 8.0 01/30/17 15:23 78 12 94 Nasal Cannula 3.0 01/30/17 11:46 36.7 98 20 133/84 93 Nasal Cannula 3.0 01/30/17 11:20 108 12 95 Nasal Cannula 3.0 (Nkechi Ignacio PA-C) Physical Exam General Appearance: + mild distress (mild respiratory distress) Eyes: EOMI Neck: no JVD Respiratory/Chest: + pertinent finding (wheezing and coarse breath sounds diffusely. No crackles auscultated at the bases bilaterally.) Cardiovascular: + tachycardia Abdomen: normal bowel sounds, non tender, soft Extremities: non-tender, no pedal edema Neurologic/Psychiatric: no motor/sensory deficits, oriented x 3 Skin: warm/dry (Nkechi Ignacio PA-C) Laboratory Results 01/31/17 06:00 Red Blood Count 4.13, Mean Corpuscular Volume 85.2, Mean Corpuscular Hemoglobin 29.5, Mean Corpuscular Hemoglobin Concent 34.7, Mean Platelet Volume 9.3, Neutrophils (%) (Auto) 78.7, Lymphocytes (%) (Auto) 14.2, Monocytes (%) (Auto) 5.0, Eosinophils (%) (Auto) 0.1, Basophils (%) (Auto) 0.1, Neutrophils # (Auto) 6.97, Lymphocytes # (Auto) 1.26, Monocytes # (Auto) 0.44, Eosinophils # (Auto) 0.01, Basophils # (Auto) 0.01 01/31/17 06:00 Test 01/30/17 11:46 01/30/17 12:00 01/31/17 06:00 Prothrombin Time 11.6 SECONDS (9.0-12.0) Prothromb Time International Ratio 1.1 (0.9-1.1) Activated Partial Thromboplast Time 32.4 SECONDS (21.0-31.0) Partial Thromboplastin Ratio 1.2 D-Dimer 950 ug/L FEU (0-500) Urine Color DK YELLOW Urine Appearance CLEAR (CLEAR) Urine pH 5.5 (4.5-7.5) Urine Specific Gattman 1.035 (1.000-1.030) Urine Protein 1+ (NEG) Urine Glucose (UA) NEG (NEG) Urine Ketones NEG (NEG) Urine Occult Blood NEG (NEG) Urine Nitrite NEG (NEG) Urine Bilirubin NEG (NEG) Urine Urobilinogen NEG (NEG) Urine Leukocyte Esterase NEG (NEG) Urine WBC (Auto) 1-5 /hpf (0-5) Urine RBC (Auto) 0-4 /hpf (0-4) Urine Hyaline Casts (Auto) 1-5 /lpf (0-5) Urine Epithelial Cells (Auto) 0-5 /lpf (0-5) Urine Bacteria (Auto) NEG (NEG) White Blood Count 8.86 K/uL (4.8-10.8) Red Blood Count 4.13 M/uL (4.7-6.1) Hemoglobin 12.2 g/dL (14.0-18.0) Hematocrit 35.2 % (42-52) Mean Corpuscular Volume 85.2 fL (80-100) Mean Corpuscular Hemoglobin 29.5 pg (25-34) Mean Corpuscular Hemoglobin Concent 34.7 g/dl (32-36) Platelet Count 274 K/uL (130-400) Mean Platelet Volume 9.3 fL (7.4-10.4) Neutrophils (%) (Auto) 78.7 % Lymphocytes (%) (Auto) 14.2 % Monocytes (%) (Auto) 5.0 % Eosinophils (%) (Auto) 0.1 % Basophils (%) (Auto) 0.1 % Neutrophils # (Auto) 6.97 K/uL (1.4-6.5) Lymphocytes # (Auto) 1.26 K/uL (1.2-3.4) Monocytes # (Auto) 0.44 K/uL (0.11-0.59) Eosinophils # (Auto) 0.01 K/uL (0-0.5) Basophils # (Auto) 0.01 K/uL (0-0.2) RDW Standard Deviation 40.0 fL (36.4-46.3) RDW Coefficient of Variation 12.8 % (11.5-14.5) Immature Granulocyte % (Auto) 1.9 % Immature Granulocyte # (Auto) 0.17 K/uL (0.00-0.02) Anion Gap 7.0 mmol/L (3-11) Est Creatinine Clear Calc Drug Dose 102.3 ml/min Estimated GFR () 122.7 Estimated GFR (Non- 105.8 BUN/Creatinine Ratio 19.1 (10-20) Calcium Level 8.6 mg/dl (8.5-10.1) Magnesium Level 2.0 mg/dl (1.8-2.4) Last 24 Hours Test 01/30/17 11:46 01/30/17 12:00 01/31/17 06:00 Prothrombin Time 11.6 SECONDS Prothromb Time International Ratio 1.1 Activated Partial Thromboplast Time 32.4 SECONDS Partial Thromboplastin Ratio 1.2 D-Dimer 950 ug/L FEU Urine Color DK YELLOW Urine Appearance CLEAR Urine pH 5.5 Urine Specific Gattman 1.035 Urine Protein 1+ Urine Glucose (UA) NEG Urine Ketones NEG Urine Occult Blood NEG Urine Nitrite NEG Urine Bilirubin NEG Urine Urobilinogen NEG Urine Leukocyte Esterase NEG Urine WBC (Auto) 1-5 /hpf Urine RBC (Auto) 0-4 /hpf Urine Hyaline Casts (Auto) 1-5 /lpf Urine Epithelial Cells (Auto) 0-5 /lpf Urine Bacteria (Auto) NEG White Blood Count 8.86 K/uL Red Blood Count 4.13 M/uL Hemoglobin 12.2 g/dL Hematocrit 35.2 % Mean Corpuscular Volume 85.2 fL Mean Corpuscular Hemoglobin 29.5 pg Mean Corpuscular Hemoglobin Concent 34.7 g/dl Platelet Count 274 K/uL Mean Platelet Volume 9.3 fL Neutrophils (%) (Auto) 78.7 % Lymphocytes (%) (Auto) 14.2 % Monocytes (%) (Auto) 5.0 % Eosinophils (%) (Auto) 0.1 % Basophils (%) (Auto) 0.1 % Neutrophils # (Auto) 6.97 K/uL Lymphocytes # (Auto) 1.26 K/uL Monocytes # (Auto) 0.44 K/uL Eosinophils # (Auto) 0.01 K/uL Basophils # (Auto) 0.01 K/uL RDW Standard Deviation 40.0 fL RDW Coefficient of Variation 12.8 % Immature Granulocyte % (Auto) 1.9 % Immature Granulocyte # (Auto) 0.17 K/uL Sodium Level 139 mmol/L Potassium Level 4.5 mmol/L Chloride Level 99 mmol/L Carbon Dioxide Level 33 mmol/L Anion Gap 7.0 mmol/L Blood Urea Nitrogen 13 mg/dl Creatinine 0.66 mg/dl Est Creatinine Clear Calc Drug Dose 102.3 ml/min Estimated GFR () 122.7 Estimated GFR (Non- 105.8 BUN/Creatinine Ratio 19.1 Random Glucose 135 mg/dl Calcium Level 8.6 mg/dl Magnesium Level 2.0 mg/dl (Nkechi Ignacio, SÁNCHEZ-C) Diagnostic Results CHEST CTA for PULMONARY ARTERIES CT DOSE: 336.36 mGy.cm HISTORY: Chest pain dyspnea TECHNIQUE: Multiaxial CT images of the chest were performed following the intravenous administration of contrast to evaluate the pulmonary arteries. Maximal intensity projection images were also obtained. COMPARISON STUDY: 12/31/2015 FINDINGS: Images are negative for pulmonary embolus. No evidence for cardiac enlargement. Poorly defined right lower lobe parenchymal infiltrate. Baseline emphysematous change. Slight peribronchial thickening throughout. Chronic apical fibrotic change. Minimal dependent bibasilar atelectasis. IMPRESSION: 1. Study is negative for pulmonary embolus. 2. Mild parenchymal infiltrate right lower lobe superimposed upon chronic peribronchial and interstitial change Electronically signed by: Rubén Chavarria M.D. 01/30/2017 4:12 PM Dictated Date/Time: 01/30/2017 4:08 PM The status of this report is Signed. Draft = Not yet reviewed or approved by Radiologist. Signed = Reviewed and approved by Radiologist. (Nkechi Ignacio PA-C) Assessment and Plan 61-year-old male presents emergency department with a nonproductive cough and shortness of breath, chest x-ray consistent with an atypical pneumonitis. Acute on chronic hypoxic respiratory failure secondary to pneumonia/COPD exacerbation-failed outpt therapy with Levaquin -Flu neg -Continue cefepime -Azithromycin changed to doxycycline yesterday for atypical coverage. Was not tolerating azithro -change nebs to xopenex/atrovent every 4 hrs scheduled, every 2 hrs prn (for tachycardia) -solumedrol 40 mg q 8 hr -Pulm consult-->CT chest ordered. No PE. Spiriva d/c'ed d/t urinary sx -continue O2 to keep sat >88% -Continue symbicort-->increased to 2 puffs BID -Begin mucinex 1200 mg po BID -Patient will need set up for a nebulizer at home -will also check echo to access for signs of HF Weight loss-etiology unknown. colonoscopy NL. -Given BPH sx, check PSA Chronic lower back pain-medications verified. Patient follows with [facility] pain management -Continue outpatient regimen as follows: Oxycodone 20 mg up to 5 times daily OxyContin 60 mg BID Baclofen 20 mg 4 times daily GERD -Pantoprazole 40 mg daily while in house -Upon discharge, resume ranitidine 300 mg HS DVT prophylaxis -Lovenox 40 mg subQ daily -TEDS, SCDs CODE STATUS -LEVEL I FULL CODE DISPO -Anticipate DC home with self-care -Patient will need a nebulizer at home (Nkechi Ignacio PA-C) PA Physician Supervision Note: I interviewed and examined the patient. Discussed with Dr. Nkechi Ignacio PAC and agree with findings and plan as documented in the note. Any exceptions or clarifications are listed here: None this pt has history of chronic lung disease and recently treated for pneumonia, CT ordered by [facility], I reviewed CT myself and discussed the findings with DR Antonio, there is an infiltrate noted but no PE, thus diagnosis of pneumonia with concern for gram negative pneumonia vitals labs and CT personally reviewed lungs with coarse breath sounds b/l but improved from admission, now just dyspneic on exertion and not at rest, difficult cough and little sputum car is reg without murmur treat for copd exacerbation and gram negative pneumonia pending echo Documented By: Kevin Aaron (Kevin Aaron M.D.)
[2017-01-31] MEDS ORDERED: LEVALBUTEROL/IPRATROPIUM NEB INH SCH (11:30)
[2017-01-31] MEDS ORDERED: IPRATROPIUM BROMIDE NEB SOLN 0.02% 2.5 ML VIAL INH PRN (11:45)
[2017-01-31] MEDS ORDERED: LEVALBUTEROL 1.25MG/0.5ML NEB INH PRN (11:45)
--- NOTE | 2017-01-31 12:31 | PULMONARY PROGRESS NOTE ---
DATE: 01/31/2017 TIME: 11:55 a.m. SUBJECTIVE: The patient feels quite a bit better. His cough is much diminished compared with before. He is expectorating sputum. There has been no hemoptysis. He is less short of breath. Today, he walked he states around the hallway twice. I am assuming he took his oxygen off to do that. He indicated yesterday he was short of breath just walking to the nurse's station, which is close to his room. We did do a CT angio of the chest yesterday. This was in part on followup from a CAT scan 1 year ago. His D-dimer was then elevated, so we did a CT angio technique. There was no evidence of pulmonary embolic disease. He does have some right lower lobe changes, which are more pronounced than before. I believe this may represent some bronchiectasis. The possibility of pneumonic infiltrate cannot be excluded. He does have emphysematous changes seen throughout the lungs. OBJECTIVE: GENERAL: The patient appeared comfortable at rest. Temperature is 36.5. HEENT: Mouth exam shows teeth to be in suboptimal repair. HEART: The patient's heart rate is elevated at 125. I do not know the reason for this. That was at 10:53 a.m. When I just examined the patient, his heart rate was still approximately 120. He did not appear in any distress. Blood pressure is 129/82. LUNGS: Lung rdz still revealed that the patient was tight with wheezing bilaterally on expiration and he had marked prolongation to the expiratory phase of respiration. ABDOMEN: Soft and nontender. EXTREMITIES: Showed no cyanosis, clubbing or edema. LABORATORY DATA: White count today was 8.86. Hemoglobin 12.2. This does reflect a drop from the 15.6 he had yesterday. Platelets are 274,000. Electrolytes show sodium 139, potassium 4.5, chloride 99, and bicarbonate 33. Random blood sugar was 135. BUN was 13 with a creatinine of 0.66. IMPRESSIONS: 1. Acute respiratory failure with hypoxia and hypercarbia. 2. Chronic obstructive pulmonary disease with exacerbation. 3. Lung nodule by history -- no specific nodule noted on CAT scan. 4. Possible benign prostatic hypertrophy. COMMENTS AND RECOMMENDATIONS: The patient is clinically improved. The case was discussed with Dr. Aaron. The heart rate will need to be observed. The azithromycin was discontinued, but he was started on doxycycline. I was not entirely clear as to the reason for that. The patient did refuse to take the Lovenox shot. I would continue with the methylprednisolone as he is currently at 40 mg IV q. 8 hours. We will follow the patient with you.
[2017-01-31] MEDS: OXYCODONE HCL IR 5 MG TAB (IMMEDIATE RELEASE) PO PRN ×3 (12:48→22:15)
[2017-01-31] MEDS: ENOXAPARIN 40 MG/0.4 ML SYR SQ SCH (13:57)
[2017-01-31] MEDS: LEVALBUTEROL 1.25MG/0.5ML NEB INH SCH ×2 (15:39→19:18)
[2017-01-31] MEDS: IPRATROPIUM BROMIDE NEB SOLN 0.02% 2.5 ML VIAL INH SCH ×2 (15:39→19:18)
[2017-01-31] MEDS ORDERED: NURSING VERBAL MED ORDER ONE (15:45)
--- NOTE | 2017-01-31 16:11 | ECHOCARDIOGRAM REPORT ---
*NOTICE TO RECEIVING CONSTITUTION PARTY AGENCY This information is strictly Confidential and protected under [place] law. [place] law prohibits you from making any further disclosure of this information unless further disclosure is expressly permitted by the written consent of the person to whom it pertains or is authorized by law. A general authorization for the release of medical or other information is not sufficient for this purpose. Hospital accepts no responsibility if the information is made available to any other person, INCLUDING THE PATIENT. Interpretation Summary * Name: DEVIKA STEINER JR Study Date: 01/31/2017 01:37 PM BP: 161/92 mmHg * Patient Location: .4E\S\E410\S\1 HR: 118 * : 1955 (M/d/yyyy) Gender: Male Height: 67 in * Age: 61 yrs Ethnicity: CA Weight: 132 lb * Ordering Physician: Nkechi Ignacio * Referring Physician: KELLIE * Performed By: Jaky Sweeney RDCS * * Reason For Study: ? FLUID OVERLOAD * BSA: 1.7 m2 * History: ? FLUID OVERLOAD * -- Conclusions -- * Left ventricular systolic function is low normal. * No regional wall motion abnormalities noted. * Ejection Fraction = 50-55%. * There is mild tricuspid regurgitation. Procedure Details * A complete two-dimensional transthoracic echocardiogram was performed (2D, M-mode, Doppler and color flow Doppler). Left Ventricle * The left ventricle is normal in size. * There is normal left ventricular wall thickness. * Ejection Fraction = 50-55%. * Left ventricular systolic function is low normal. * No regional wall motion abnormalities noted. Right Ventricle * The right ventricle is not well visualized. * The right ventricular systolic function is normal as assessed by tricuspid annular plane systolic excursion (TAPSE) (normal >1.5 cm). Atria * The left atrial size is normal. * Right atrial size is normal. * There is no evidence of atrial septal defect, but resolution does not allow assessment for a patent foramen ovale. Mitral Valve * The mitral valve is grossly normal. * There is no mitral valve stenosis. * Significant mitral regurgitation is absent. Tricuspid Valve * The tricuspid valve is not well visualized. * There is no tricuspid stenosis. * There is mild tricuspid regurgitation. Aortic Valve * The aortic valve is not well visualized. * The aortic valve opens well. * No hemodynamically significant valvular aortic stenosis. * There is no significant aortic regurgitation. Pulmonic Valve * The pulmonic valve is not well visualized. Great Vessels * The aortic root is normal size. Pericardium/Pleural * There is no pericardial effusion. Great Vessels * Normal inferior vena cava size and collapsability with sniff indicates a normal right atrial pressure of 3 mmHg MMode 2D Measurements and Calculations IVSd 1.0 cm IVSs 1.2 cm LVIDd 4.6 cm LVIDs 3.3 cm LVPWd 0.84 cm LVPWs 1.4 cm IVS/LVPW 1.2 FS 27.0 % EDV(Teich) 95.4 ml ESV(Teich) 45.0 ml EF(Teich) 52.8 % EDV(cubed) 94.9 ml ESV(cubed) 36.9 ml EF(cubed) 61.1 % % IVS thick 20.4 % % LVPW thick 64.9 % LV mass(C)d 143.5 grams LV mass(C)dI 84.7 grams/m\S\2 LV mass(C)s 146.3 grams LV mass(C)sI 86.4 grams/m\S\2 SV(Teich) 50.4 ml SI(Teich) 29.7 ml/m\S\2 SV(cubed) 58.0 ml SI(cubed) 34.2 ml/m\S\2 Ao root diam 3.4 cm Ao root area 8.8 cm\S\2 LVAd ap4 24.1 cm\S\2 LVLd ap4 7.9 cm EDV(MOD-sp4) 61.6 ml EDV(sp4-el) 62.4 ml LVAs ap4 15.0 cm\S\2 LVLs ap4 6.7 cm ESV(MOD-sp4) 28.9 ml ESV(sp4-el) 28.5 ml EF(MOD-sp4) 53.1 % EF(sp4-el) 54.3 % LVAd ap2 23.6 cm\S\2 LVLd ap2 8.3 cm EDV(MOD-sp2) 56.9 ml EDV(sp2-el) 57.0 ml LVAs ap2 14.7 cm\S\2 LVLs ap2 7.1 cm ESV(MOD-sp2) 26.8 ml ESV(sp2-el) 25.8 ml EF(MOD-sp2) 52.9 % EF(sp2-el) 54.7 % LVLd %diff 4.9 % EDV(MOD-bp) 60.0 ml LVLs %diff 6.8 % ESV(MOD-bp) 28.4 ml EF(MOD-bp) 52.7 % SV(MOD-sp4) 32.7 ml SI(MOD-sp4) 19.3 ml/m\S\2 SV(MOD-sp2) 30.1 ml SI(MOD-sp2) 17.8 ml/m\S\2 SV(MOD-bp) 31.6 ml SI(MOD-bp) 18.7 ml/m\S\2 SV(sp4-el) 33.9 ml SI(sp4-el) 20.0 ml/m\S\2 SV(sp2-el) 31.2 ml SI(sp2-el) 18.4 ml/m\S\2 Doppler Measurements and Calculations Ao V2 max 128.2 cm/sec Ao max PG 6.6 mmHg Ao max PG (full) 3.3 mmHg LV V1 max PG 3.3 mmHg LV V1 max 90.2 cm/sec
[2017-01-31] MEDS: GUAIFENESIN 600 MG TABCR PO SCH (20:29)
[2017-01-31] MEDS: AMITRIPTYLINE HCL 100 MG TAB PO SCH (20:30)
[2017-01-31] MEDS: VARENICLINE (CHANTIX) 1 MG TAB PO SCH (20:32)
[2017-01-31] MEDS: RANITIDINE HCL 150 MG TAB PO SCH (20:32)
[2017-02-01] MEDS: METHYLPREDNISOLONE IV 40 MG in SYRINGE 0 ML IV SCH ×3 (00:52→15:58)
[2017-02-01] MEDS: LEVALBUTEROL 1.25MG/0.5ML NEB INH SCH ×4 (02:16→19:31)
[2017-02-01] MEDS: IPRATROPIUM BROMIDE NEB SOLN 0.02% 2.5 ML VIAL INH SCH ×4 (02:16→19:31)
[2017-02-01 06:49] LABS: BASO % 0.1 %; BASO ABS # 0.02 K/uL (0-0.2); COMPLETE YES; HEMATOCRIT 38.3 % (42-52); IG% 1.2 %; LYMPH % 9.6 %; MEAN CELL VOLUME 88.2 fL (80-100); MEAN CORPUSCULAR HEMOGLOBIN 30.2 pg (25-34); MEAN CORPUSCULAR HGB CONC 34.2 g/dl (32-36); MEAN PLATELET VOLUME 9.7 fL (7.4-10.4); MONO % 3.2 %; NEUT % 85.9 %; PLATELET COUNT 310 K/uL (130-400); RED BLOOD COUNT 4.34 M/uL (4.7-6.1); WHITE BLOOD COUNT 15.57 K/uL (4.8-10.8)
[2017-02-01 07:14] VITALS: PULSE 100; O2SAT 94
[2017-02-01 07:20] LABS: BUN/CREATININE RATIO 24.1 (10-20); CALCIUM 8.9 mg/dl (8.5-10.1); CREATININE 0.86 mg/dl (0.60-1.40); POTASSIUM 4.5 mmol/L (3.5-5.1)
[2017-02-01 07:54] VITALS: BP 148/89; PULSE 101; TEMP 36.5; O2SAT 93
[2017-02-01] MEDS: BUDESONIDE/FORMOTEROL FUMARATE 160/4.5 60 PUFFS/INHALER INH SCH ×2 (08:28→20:21)
[2017-02-01] MEDS: CEFEPIME IV 2000 MG in DEXTROSE 5% 100ML IV SCH ×2 (08:28→20:40)
[2017-02-01] MEDS: VARENICLINE (CHANTIX) 1 MG TAB PO SCH ×2 (08:30→20:22)
[2017-02-01] MEDS: DOXYCYCLINE HYCLATE 100 MG CAP PO SCH ×2 (08:31→20:24)
[2017-02-01] MEDS: BACLOFEN TAB 20 MG TAB PO SCH ×4 (08:31→20:21)
[2017-02-01] MEDS: GUAIFENESIN 600 MG TABCR PO SCH ×2 (08:32→20:25)
[2017-02-01] MEDS: OXYCODONE HCL 20 MG TABCR (OXYCONTIN) PO PRN ×2 (08:32→20:22)
[2017-02-01] MEDS ORDERED: AZITHROMYCIN 250 MG TAB PO SCH ×2 (11:00)
[2017-02-01] MEDS: OXYCODONE HCL IR 5 MG TAB (IMMEDIATE RELEASE) PO PRN ×3 (12:39→21:24)
[2017-02-01] MEDS: ENOXAPARIN 40 MG/0.4 ML SYR SQ SCH (14:00)
[2017-02-01 14:03] VITALS: PULSE 112; O2SAT 90
--- NOTE | 2017-02-01 15:41 | Progress Note ---
Subjective Date of Service: Feb 01, 2017. Subjective pt states he is feeling much better and that he has been able to cough up more mucus, currently is not needing oxygen at rest Problem List Medical Problems: (1) Chest pain Status: Acute (2) COPD exacerbation Status: Acute (3) Tachycardia Status: Acute (4) Tobacco dependence Status: Acute Review of Systems Constitutional: No chills, No fever Respiratory: + cough, + dyspnea on exertion, + shortness of breath, + sputum, No wheezing Cardiac: No chest pain, No edema Abdomen: No diarrhea, No nausea, No pain, No vomiting Neurologic: No memory loss, No paralysis Psychiatric: No anhedonism, No anxiety, No depression symptoms Objective Vital Signs Date Time Temp Pulse Resp B/P Pulse Ox O2 Delivery O2 Flow Rate FiO2 02/01/17 14:03 112 18 90 Nasal Cannula 2.0 02/01/17 07:54 36.5 101 20 148/89 93 Room Air 02/01/17 07:14 100 16 94 Nasal Cannula 2.0 02/01/17 00:05 Nasal Cannula 3.0 01/31/17 23:58 36.6 110 20 146/86 94 Nasal Cannula 2.0 01/31/17 20:00 Nasal Cannula 3.0 01/31/17 19:18 61 16 94 Nasal Cannula 3.0 01/31/17 16:00 Nasal Cannula 3.0 01/31/17 15:39 116 16 94 Nasal Cannula 3.0 Physical Exam General Appearance: WD/WN, + moderate distress Neck: supple, no JVD Respiratory/Chest: chest non-tender, + decreased breath sounds, + accessory muscle use Cardiovascular: no murmur, + tachycardia Abdomen: normal bowel sounds, non tender, soft Extremities: no pedal edema, no calf tenderness Neurologic/Psychiatric: alert, oriented x 3 Laboratory Results Last 24 Hours Test 02/01/17 06:22 White Blood Count 15.57 K/uL Red Blood Count 4.34 M/uL Hemoglobin 13.1 g/dL Hematocrit 38.3 % Mean Corpuscular Volume 88.2 fL Mean Corpuscular Hemoglobin 30.2 pg Mean Corpuscular Hemoglobin Concent 34.2 g/dl Platelet Count 310 K/uL Mean Platelet Volume 9.7 fL Neutrophils (%) (Auto) 85.9 % Lymphocytes (%) (Auto) 9.6 % Monocytes (%) (Auto) 3.2 % Eosinophils (%) (Auto) 0.0 % Basophils (%) (Auto) 0.1 % Neutrophils # (Auto) 13.37 K/uL Lymphocytes # (Auto) 1.50 K/uL Monocytes # (Auto) 0.50 K/uL Eosinophils # (Auto) 0.00 K/uL Basophils # (Auto) 0.02 K/uL RDW Standard Deviation 42.2 fL RDW Coefficient of Variation 12.9 % Immature Granulocyte % (Auto) 1.2 % Immature Granulocyte # (Auto) 0.18 K/uL Sodium Level 138 mmol/L Potassium Level 4.5 mmol/L Chloride Level 99 mmol/L Carbon Dioxide Level 33 mmol/L Anion Gap 6.0 mmol/L Blood Urea Nitrogen 21 mg/dl Creatinine 0.86 mg/dl Est Creatinine Clear Calc Drug Dose 78.5 ml/min Estimated GFR () 110.0 Estimated GFR (Non- 94.9 BUN/Creatinine Ratio 24.1 Random Glucose 134 mg/dl Calcium Level 8.9 mg/dl Assessment and Plan 61-M with acute on chronic respiratory failure and concern for gram negative pneumonia Acute on chronic hypoxic respiratory failure secondary to pneumonia/COPD exacerbation- cefepime and doxycycline , tapering steroids, due to tachycardia xopenex was tried in nebs -Pulm consult-->CT chest ordered. No PE. Spiriva d/c'ed d/t urinary sx -symbicort made bid for congestion flutter valve and mucinex 1200 mg po BID Cardiac echo shows good EF and no valvular issues Chronic lower back pain-medications verified by Physician psychological assistant Oxycodone 20 mg up to 5 times daily OxyContin 60 mg BID Baclofen 20 mg 4 times daily GERD -Pantoprazole 40 mg daily on discharge ranitidine 300 mg HS DVT prophylaxis Lovenox 40 mg subQ daily FULL CODE
[2017-02-01 16:00] VITALS: BP 147/84; PULSE 107; TEMP 37; O2SAT 92
--- NOTE | 2017-02-01 16:30 | PULMONARY PROGRESS NOTE ---
DATE: 02/01/2017 TIME: 4:00 p.m. SUBJECTIVE: The patient feels much better. He is less short of breath. His cough is less. The patient states he was walking the hallway today without much difficulty. He persists with heart rate higher than normal. He did have an echocardiogram done. This revealed a low normal left ventricular systolic function with no regional wall motion abnormalities. The ejection fraction was between 50% and 55%. Mild TR was noted. OBJECTIVE: GENERAL: The patient is comfortable at rest. VITAL SIGNS: Temperature is 36.5. Heart rate is elevated at 115. The rhythm is regular. Blood pressure 148/89. Respiratory rate 18 breaths per minute. CHEST: Auscultation revealed a faint wheeze bilaterally at end expiration. The breath sounds are diminished from normal. Oxygen saturation checked by myself on room air was 91%. ABDOMEN: Soft and nontender. EXTREMITIES: Showed no edema. White count today is 15.57. I expect the increase is due to steroids. Hemoglobin is 13.1. Platelets 310,000. Electrolytes show sodium 138, potassium 4.5, chloride 99, and bicarbonate 33. BUN was 21 with a creatinine of 0.86. Random sugar was 134. PSA was 1.73. IMPRESSION: 1. Acute respiratory failure with hypoxia and hypercarbia -- improved. 2. Chronic obstructive pulmonary disease with exacerbation. 3. Tachycardia -- etiology unclear. COMMENTS AND RECOMMENDATIONS: The patient is clinically much improved. He is currently taking Chantix. His neb treatments are levalbuterol and ipratropium. He is still on cefepime. He is getting Symbicort. His steroids are still at 40 mg IV q. 8 hours. The patient is hoping to go home tomorrow. I think we should change him to oral prednisone and see how he does with that. There is a chance he might exacerbate off of the IV steroids. We will give him 1 oral dose tonight. Consideration is given to advising a Holter monitor following discharge.
[2017-02-01 19:31] VITALS: PULSE 111; O2SAT 93
[2017-02-01] MEDS: AMITRIPTYLINE HCL 100 MG TAB PO SCH (20:23)
[2017-02-01] MEDS: RANITIDINE HCL 150 MG TAB PO SCH (20:27)
[2017-02-01 23:39] VITALS: BP 123/70; PULSE 103; TEMP 36.8; O2SAT 94
[2017-02-02] VITALS: O2SAT 93
[2017-02-02] MEDS: IPRATROPIUM BROMIDE NEB SOLN 0.02% 2.5 ML VIAL INH SCH ×2 (02:28→07:14)
[2017-02-02] MEDS: LEVALBUTEROL 1.25MG/0.5ML NEB INH SCH ×2 (02:28→07:14)
[2017-02-02 06:03] LABS: HEMATOCRIT 37.8 % (42-52); MEAN CELL VOLUME 87.5 fL (80-100); MEAN CORPUSCULAR HEMOGLOBIN 30.3 pg (25-34); MEAN CORPUSCULAR HGB CONC 34.7 g/dl (32-36); MEAN PLATELET VOLUME 9.3 fL (7.4-10.4); PLATELET COUNT 295 K/uL (130-400); RED BLOOD COUNT 4.32 M/uL (4.7-6.1); WHITE BLOOD COUNT 16.87 K/uL (4.8-10.8)
[2017-02-02 06:33] LABS: BUN/CREATININE RATIO 23.6 (10-20); CALCIUM 8.7 mg/dl (8.5-10.1); CREATININE 0.86 mg/dl (0.60-1.40); POTASSIUM 4.3 mmol/L (3.5-5.1)
[2017-02-02 06:43] LABS: BASO % 0.1 %; BASO ABS # 0.02 K/uL (0-0.2); COMPLETE YES; IG% 1.7 %; LYMPH % 12.2 %; LYMPH ABS # 2.05 K/uL (1.2-3.4); TOXIC GRANULATION OCCASIONAL
[2017-02-02 07:14] VITALS: PULSE 92; O2SAT 96
[2017-02-02 07:38] VITALS: BP 155/95; PULSE 95; TEMP 36.6; O2SAT 92
[2017-02-02] MEDS: BUDESONIDE/FORMOTEROL FUMARATE 160/4.5 60 PUFFS/INHALER INH SCH (08:12)
[2017-02-02] MEDS: CEFEPIME IV 2000 MG in DEXTROSE 5% 100ML IV SCH (08:12)
[2017-02-02] MEDS: BACLOFEN TAB 20 MG TAB PO SCH ×2 (08:13→11:57)
[2017-02-02] MEDS: VARENICLINE (CHANTIX) 1 MG TAB PO SCH (08:13)
[2017-02-02] MEDS: DOXYCYCLINE HYCLATE 100 MG CAP PO SCH (08:13)
[2017-02-02] MEDS: GUAIFENESIN 600 MG TABCR PO SCH (08:14)
[2017-02-02] MEDS: OXYCODONE HCL 20 MG TABCR (OXYCONTIN) PO PRN (08:14)
[2017-02-02] MEDS: OXYCODONE HCL IR 5 MG TAB (IMMEDIATE RELEASE) PO PRN ×2 (08:15→11:57)
[2017-02-02 11:05] VITALS: O2SAT 92
--- NOTE | 2017-02-02 11:41 | PULMONARY PROGRESS NOTE ---
DATE: 02/02/2017 TIME: 11:20 a.m. SUBJECTIVE: The patient states he feels well. He denies significant shortness of breath. He denies significant cough. The patient tells me that he walked around the hallway twice without dyspnea and reportedly, his saturation was 92%. OBJECTIVE: GENERAL: The patient appears comfortable. He is afebrile at 36.6. EARS, NOSE, AND THROAT: Exam is unchanged from prior. NECK: Palpation of the neck reveals no lymph nodes. HEART: Heart rate remains elevated. At present, it is 115 per minute. The rhythm is regular. He states he just took a shower. Blood pressure is 155/95. Review of vital signs for the past 24 hours shows a prior recorded maximum of 112. LUNGS: The breath sounds are diminished. When the patient was asked to do a forced vital capacity maneuver, one could hear rhonchi, but with normal tidal breathing lungs were clear. Respiratory rate is 18 breaths per minute. I did a pulse oximetry on room air and got 92%. ABDOMEN: Soft and nontender. EXTREMITIES: Showed no cyanosis, clubbing or edema. LABORATORY DATA: White count today is 16.87. Hemoglobin is 13.1. Platelets were 295,000. Electrolytes show sodium 140, potassium 4.3, chloride 99, and bicarbonate 35. BUN was 20 with a creatinine of 0.86. IMPRESSIONS: 1. Acute respiratory failure with hypoxia and hypercarbia -- improved. 2. Chronic obstructive pulmonary disease with exacerbation. 3. Tachycardia. COMMENTS AND RECOMMENDATIONS: The patient seems to be much improved. I have no objection to discharge if desired. His prednisone can be tapered as an outpatient. Would suggest ordering a nebulizer for the patient. Would continue his Symbicort at home. Consideration might be given to suggesting to the primary doctor that he have a Holter monitor as an outpatient. I would like to have the patient seen in my office in approximately 3 weeks. CATRACHITO
[2017-02-02] MEDS ORDERED: GFNSR600 PO (12:10)
[2017-02-02] MEDS ORDERED: CHN/1 PO (12:10)
[2017-02-02] MEDS ORDERED: DXY100 PO (12:10)
[2017-02-02] MEDS ORDERED: CEFD300C2 PO (12:10)
[2017-02-02] MEDS ORDERED: PRED10TA PO (12:10)
[2017-02-02] MEDS ORDERED: ATRINS INH (12:10)
[2017-02-02] MEDS ORDERED: XPNINS1255 INH (12:10)
[2017-02-02] MEDS ORDERED: NEBMAC (12:11)
--- NOTE | 2017-02-02 12:14 | Discharge Instructions ---
Discharge Instructions Date of Service Feb 02, 2017. Admission Reason for Admission: Copd Exacerbation Discharge Discharge Diagnosis / Problem: pneumonia, COPD exacerbation Discharge Goals Goal(s): Improve function Activity Recommendations Activity Limitations: resume your previous activity . Instructions / Follow-Up Instructions / Follow-Up You have been treated in the hospital for pneumonia and a COPD exacerbation. This has improved with antibiotics, nebulizer treatments and steroids. The following changes/additions have been made to your medication list: -Omnicef 300 mg by mouth twice daily-finish course -Doxycycline 100 mg by mouth twice daily-finish course -Duo neb treatments every 6 hours. You may use as often as every 2 hours for increased shortness of breath -Prednisone taper. Please take as directed Please follow up with your primary care physician within one week Please also follow up with your learning coach, Dr. Khalil in the next 2 weeks Call your doctor or return to the emergency department if you have any of the following symptoms: -Fever of 101F or greater -Persistent vomiting - Persistent diarrhea -Lethargy -Chest pain -Worsening shortness of breath -severe dizziness -weakness on one side of your body Current Hospital Diet Patient's current hospital diet: AHA Diet (Heart Healthy) Discharge Diet Recommended Diet: Regular Diet Procedures Procedures Performed: CT chest 1. Study is negative for pulmonary embolus. 2. Mild parenchymal infiltrate right lower lobe superimposed upon chronic peribronchial and interstitial change Pending Studies Studies pending at discharge: no Laboratory Results 02/02/17 05:22 Red Blood Count 4.32, Mean Corpuscular Volume 87.5, Mean Corpuscular Hemoglobin 30.3, Mean Corpuscular Hemoglobin Concent 34.7, Mean Platelet Volume 9.3, Neutrophils (%) (Auto) 81.0, Lymphocytes (%) (Auto) 12.2, Monocytes (%) (Auto) 5.0, Eosinophils (%) (Auto) 0.0, Basophils (%) (Auto) 0.1, Neutrophils # (Auto) 13.68, Lymphocytes # (Auto) 2.05, Monocytes # (Auto) 0.84, Eosinophils # (Auto) 0.00, Basophils # (Auto) 0.02 02/02/17 05:22 Test 02/02/17 05:22 White Blood Count 16.87 K/uL (4.8-10.8) Red Blood Count 4.32 M/uL (4.7-6.1) Hemoglobin 13.1 g/dL (14.0-18.0) Hematocrit 37.8 % (42-52) Mean Corpuscular Volume 87.5 fL (80-100) Mean Corpuscular Hemoglobin 30.3 pg (25-34) Mean Corpuscular Hemoglobin Concent 34.7 g/dl (32-36) Platelet Count 295 K/uL (130-400) Mean Platelet Volume 9.3 fL (7.4-10.4) Neutrophils (%) (Auto) 81.0 % Lymphocytes (%) (Auto) 12.2 % Monocytes (%) (Auto) 5.0 % Eosinophils (%) (Auto) 0.0 % Basophils (%) (Auto) 0.1 % Neutrophils # (Auto) 13.68 K/uL (1.4-6.5) Lymphocytes # (Auto) 2.05 K/uL (1.2-3.4) Monocytes # (Auto) 0.84 K/uL (0.11-0.59) Eosinophils # (Auto) 0.00 K/uL (0-0.5) Basophils # (Auto) 0.02 K/uL (0-0.2) RDW Standard Deviation 41.8 fL (36.4-46.3) RDW Coefficient of Variation 13.0 % (11.5-14.5) Immature Granulocyte % (Auto) 1.7 % Immature Granulocyte # (Auto) 0.28 K/uL (0.00-0.02) Toxic Granulation OCCASIONAL Anion Gap 6.0 mmol/L (3-11) Est Creatinine Clear Calc Drug Dose 78.5 ml/min Estimated GFR () 110.0 Estimated GFR (Non- 94.9 BUN/Creatinine Ratio 23.6 (10-20) Calcium Level 8.7 mg/dl (8.5-10.1) Medical Emergencies . Who to Call and When: Medical Emergencies: If at any time you feel your situation is an emergency, please call 911 immediately. . Non-Emergent Contact Non-Emergency issues call your: Primary Care Provider . . "Provider Documentation" section prepared by Nkechi Ignacio. VTE Core Measure Inpt VTE Proph given/why not?: Enoxaparin (Lovenox)SQ, T.E.D. Stockings, SCD's
[2017-02-02 12:19] VITALS: BP 155/95; PULSE 95; TEMP 36.6; O2SAT 92
--- NOTE | 2017-02-02 12:28 | Discharge Summary ---
Discharge Summary Date of Service Feb 02, 2017. Discharge Summary Admission Date: Jan 30, 2017 at 08:55 Discharge Date: Feb 02, 2017 Discharge Disposition: Home Principal Diagnosis: pneumonia, COPD exacerbation Problems/Secondary Diagnoses: Chronic pain syndrome GERD Immunizations: Have You Had Influenza Vaccine: Yes History of Tetanus Vaccine?: Yes History of Pneumococcal: No History of Hepatitis B Vaccine: No Procedures: echo * Left ventricular systolic function is low normal. * No regional wall motion abnormalities noted. * Ejection Fraction = 50-55%. * There is mild tricuspid regurgitation. CT chest 1. Study is negative for pulmonary embolus. 2. Mild parenchymal infiltrate right lower lobe superimposed upon chronic peribronchial and interstitial change Consultations: Pulmonary Medication Reconciliation New Medications: Cefdinir (Omnicef) 300 Mg Cap 1 CAP PO BID for 4 Days, #8 CAP Nebulizer Machine (Home Use) (Nebulizer Machine (Home Use) ) Mis 1 EA N/A UD, #1 Prednisone Tab (Prednisone) 10 Mg Tab 10 MG PO UD, #26 TAB TAKE 4 TABS X 2 DAYS 3 TABS X 3 DAYS 2 TABS X 3 DAYS 1 TAB X 3 DAYS Doxycycline Hyclate (Doxycycline Hyclate) 100 Mg Cap 100 MG PO BID for 4 Days, #8 CAP Guaifenesin Ext Rel (Mucinex Ext Rel) 600 Mg Tabcr 1200 MG PO Q12 for 4 Days, #8 DOSE Ipratropium Hamilton (Ipratropium Hamilton) 0.5 Mg/2.5 Ml Nebu 0.5 MG INH Q6R for 30 Days, #120 DOSE Levalbuterol (Levalbuterol) 1.25 Mg/0.5 Ml Nebu 1.25 MG INH Q6R for 30 Days, #120 DOSE Varenicline (Chantix) 1 Mg Tab 1 MG PO BID for 30 Days, #60 TAB Continued Medications: Amitriptyline Hcl (Amitriptyline Hcl) 150 Mg Tab 150 MG PO HS Baclofen (Lioresal) 20 Mg Tab 20 MG PO QID, TAB Budesonide/Formoterol Fumarate (Symbicort 160/4.5 Inhaler) 120 Puffs/ Aero 1 PUFFS INH BID Oxycodone Hcl (Oxycontin) 60 Mg Tab 60 MG PO Q12 Oxycodone Hcl (Oxycodone Hcl) 20 Mg Tab 20 MG PO 5XD Ranitidine HCl (Ranitidine HCl) 150 Mg Tab 300 MG PO HS Referrals At Discharge Follow up Referrals: Physician Referral - Within 1 Week with Tangela Martinez M.D. Public Utilities Sales Representative Referral - Within 2 Weeks with Carlos Khalil, DO Discharge Exam Breathing is much improved today. Minimal cough. Denies fever or chills. No chest pain. Review of Systems: Constitutional: No fever Cardiovascular: No chest pain Abdomen: No nausea Physical Exam: General Appearance: no apparent distress Eyes: EOMI Neck: no JVD Respiratory/Chest: + pertinent finding (mild wheezing in the upper air rdz bilaterally. Decreased breath sounds at the bases bilaterally. No crackles or rhonchi.) Cardiovascular: no murmur, + tachycardia Abdomen / GI: normal bowel sounds, non tender, soft Extremities: no calf tenderness, no pedal edema Neurologic/Psychiatric: no motor/sensory deficits, oriented x 3 Skin: warm/dry Hospital Course 61-year-old male presents emergency department with a nonproductive cough and shortness of breath, chest x-ray consistent with an atypical pneumonitis. Acute on chronic hypoxic respiratory failure secondary to pneumonia/COPD exacerbation-failed outpt therapy with Levaquin -Flu neg -Broad-spectrum antibiotics with cefepime and doxycycline for atypicals ( initially was put on azithromycin, but developed a rash) -xopenex/atrovent every 6 hrs scheduled, every 2 hrs prn -solumedrol 40 mg q 8 hr--> transition to prednisone 40 mg daily on 02/01. Tolerating well. -Pulm consult-->CT chest ordered. No PE. Spiriva d/c'ed d/t urinary sx -continue O2 to keep sat >88% -Continue symbicort-->increased to 2 puffs BID -mucinex 1200 mg po BID--> Rx given for an additional 4 days -Oral antibiotic regimen upon discharge Omnicef 300 mg po BID and doxycycline 100 mg po BID for an additional 4 days -Rx for nebulizer and DuoNebs given -O2 saturation 92% with ambulation on day of discharge ? Element of fluid overload -Echo with EF low normal 50-55% no wall motion abnormalities Weight loss-etiology unknown. colonoscopy NL. -PSA check because of urinary symptoms. Within normal limits. Chronic lower back pain-medications verified. Patient follows with [facility] management -Continue outpatient regimen as follows: Oxycodone 20 mg up to 5 times daily OxyContin 60 mg BID Baclofen 20 mg 4 times daily GERD -Pantoprazole 40 mg daily while in house -Upon discharge, resume ranitidine 300 mg HS DVT prophylaxis -Lovenox 40 mg subQ daily -TEDS, SCDs CODE STATUS -LEVEL I FULL CODE DISPO -Anticipate DC home with self-care -Patient will need a nebulizer at home Total Time Spent: Greater than 30 minutes This includes examination of the patient, discharge planning, medication reconciliation, and communication with other providers. Discharge Instructions Please refer to the electronic Patient Visit Report (Discharge Instructions) for additional information. Follow-Up PCP 1 week Pulmonary in the next 2 weeks Additional Copies To Carlos Khalil DO; Tangela Martinez M.D.
== END 2017-02-02 12:45 | disposition home or self-care (01) | DRG 193 ==
LOC: ENRESERVTM → ENRESERVDT → C.EDB 07:23 → C.4E 08:55
PROVIDERS: ADMIT Internal Medicine; ATTEND Internal Medicine
DX: J18.9 Pneumonia, unspecified organism (principal); J96.21 Acute and chronic respiratory failure with hypoxia; J96.22 Acute and chronic respiratory failure with hypercapnia; J44.1 Chronic obstructive pulmonary disease with (acute) exacerbation; K21.9 Gastro-esophageal reflux disease without esophagitis; G89.4 Chronic pain syndrome; M54.5 Low back pain; R91.1 Solitary pulmonary nodule; R63.4 Abnormal weight loss; N40.0 Benign prostatic hyperplasia without lower urinary tract symptoms; R00.0 Tachycardia, unspecified; E87.70 Fluid overload, unspecified; Z79.899 Other long term (current) drug therapy; Z87.891 Personal history of nicotine dependence; Z79.51 Long term (current) use of inhaled steroids; Z79.891 Long term (current) use of opiate analgesic

== ENCOUNTER → 2017-02-14 | Outpatient (CLI) | payer BC ==
[~2017-02-14] MED LIST changes: -ALBU1AER9 INH; +ATRINS INH; +CHN/1 PO; +DXY100 PO; +GFNSR600 PO; -NXM/40 PO; +PRED10TA PO; -SPRIN/30 INH; +XPNINS1255 INH
--- NOTE | 2017-02-14 15:35 | DIAGNOSTIC IMAGING REPORT ---
CHEST 2 VIEWS ROUTINE CLINICAL HISTORY: PNEUMONIA dyspnea COMPARISON STUDY: 01/30/2017 FINDINGS: The lungs are now considered clear. Interstitial changes in the right mid and upper lung have resolved. There is no significant residual. Diaphragms smooth. Calcific angles are sharp. IMPRESSION: Lungs are now considered clear. The previously described infiltrative changes have resolved Electronically signed by: Rubén Chavarria M.D. 02/14/2017 3:34 PM Dictated Date/Time: 02/14/2017 3:33 PM
== END | disposition home or self-care (01) ==
LOC: C.RAD1850 15:22
PROVIDERS: ATTEND Internal Medicine Pulmonary Disease
DX: J18.9 Pneumonia, unspecified organism (principal)

== ENCOUNTER 2023-03-17 15:40 | Inpatient (IN) ==
[2023-03-17 17:13] LABS: Hematocrit (blood only) 41.5 % (42.0-52.0); Hemoglobin 14.5 g/dl (14.0-18.0); Mean Corpuscular Hemoglobin 31.8 pg (25.0-34.0); Mean Corpuscular Hgb Conc 34.9 g/dL (32.0-36.0); Mean Platelet Volume 9.2 fL (9.4-12.4); Platelet Count 337 K/uL (130-400); RDW Coefficient of Variation 12.5 % (11.5-14.5); RDW Standard Deviation 41.1 fL (36.4-46.3); Red Blood Count 4.56 M/uL (4.70-6.10); White Blood Count 17.12 K/ul (4.8-10.8)
--- NOTE | 2023-03-17 17:15 | Emergency Department Note ---
Impression & Plan COPD (chronic obstructive pulmonary disease), Pneumonitis, Fever ED Provider Note NAME: DEVIKA STEINER JR AGE: 68 SEX: M : 1955 ARRIVES VIA: Walk-In INFORMANT: Patient, ED PROVIDER(S): Reyes Negron MD CHIEF COMPLAINT: Cough, fever MEDICAL DECISION MAKING: Patient presents due to concern for cough and associated shortness of breath and fever. Patient is a known history of COPD and is a former smoker last smoking 2016. IV was established blood work was was obtained. The patient was ordered blood cultures procalcitonin lactate IV fluids antipyretics and Rocephin and doxycycline. Patient was also ordered a breathing treatment as well as one-time dose of methylprednisolone. The patient's blood work shows a white count of 17. The patient has a normal hemoglobin and platelet count. Kidney function is unremarkable. The patient's initial lactate is normal. Patient's bio fire is negative. Chest x-ray shows atelectatic changes versus possible developing pneumonia. Given the patient's known history of COPD former smoking and meeting for sepsis do believe the patient would benefit from inpatient treatment at this time. I did speak the on-call hospitalist service Dr. Martel and the patient was admitted to the medicine service. Prior /Outside records reviewed: Did review the patient's cardiac catheterization with Dr. Jurado in August 2022 which showed multivessel CAD diffuse proximal mid LAD up to 40% 60-77 into the distal LAD. No PCI deployed at that time. Did review an echo report from Dr. Qureshi. Patient has mildly reduced LV systolic function EF of 50%. Global hypokinesis with no regional wall motion abnormalities noted. Differential diagnosis: Sepsis, UTI, pneumonia, metabolic, electrolyte abnormalities, cardiac sources, intracerebral event, toxicologic, neurologic, as well as other pathologies. Diagnostics, as interpreted by me: ECG: Sinus tachycardia, rate of 123 normal intervals normal axis no ST elevations no significant change for comparison January 29, 2023 Cardiac monitoring: An order was placed for continuous cardiac monitoring. The monitor shows a rate of 122 with tachycardic and right rhythm. Patient was placed on pulse oximetry Medical decision rules: None Imaging studies: See below I informally reviewed the patient's chest x-ray which shows no obvious evidence of pneumothorax HPI: Patient presents due to concern for cough and fever. The patient initially became symptomatic last evening. The patient has had productive cough with yellow sputum and mild shortness of breath. Decreased p.o. intake and appetite. Patient denies any chest pains. Patient denies any falls or trauma. No leg swelling or calf pain no history of DVT or PE. 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 The patient does use Symbicort but this does not prevent symptoms. Patient has a nebulizer at home but has not used it as his agriculture laborer had instructed him prior not to use it. Patient last smoked in 2017. Patient denies any known sick contacts or recent travel. The patient does not wear any oxygen at home. Patient states that he is due for his heart medications. PAST MEDICAL HISTORY: See Below PAST SURGICAL HISTORY: See Below SOCIAL HISTORY: See Below HOME MEDICATIONS: See Below ALLERGIES: See Below VITALS: See Below PHYSICAL EXAMINATION: GENERAL: NAD, non-toxic. EYE EXAM: Normal conjunctiva. PERRL, no anisocoria and EOM's grossly intact w/o pain. NECK: Supple, no nuchal rigidity, no adenopathy, non-tender. No signs of meningismus. FROM of the neck with good chin to chest and neck extension. No stridor. LUNGS: Mild end expiratory wheezing throughout. Normal chest wall mechanics. HEART: Tachycardic and regular, no MRG. ABDOMEN: Abdomen soft, non-tender, no masses, no rebound or guarding. BACK: No CVA TTP. SKIN: No rashes and no bruising. UPPER EXTREMITIES: Upper extremities are grossly normal. LOWER EXTREMITIES: Grossly normal, no edema. Negative Homans' sign bilaterally NEURO EXAM: A&O x3, cranial nerves II-XII grossly intact, normal speech, moves all 4 extremities. Past Med/Surg History Medical History BPH (benign prostatic hyperplasia) Chronic respiratory failure follows with pulmo in [facility] dr cole gonzalez states only has 17% pulmonary function Diverticulosis Gastritis Heartburn History of blood clots SUSPECTED RIGHT LEG S/P HEART CATH AUG 2022 - F/U SCAN SHOWED NO SIGNS OF BLOOD CLOTS NO FURTHER PROBLEMS History of diverticulitis AUG 2022 History of stress test 06/28/22 done at [facility] CATH DONE FOLLOWING ABNORMAL STRESS TEST... MILD WA...NO STENT(S) ...DR HAYDEN Hyperlipidemia Multiple lung nodules on CT CT SCAN NOV 2022 AND THEY WERE GONE Pulmonary emphysema Very severe chronic obstructive pulmonary disease ONLY HAVE 21 % OF LUNG CAPACITY, SOB WITH MILD EXERTION Surgical History History of back surgery HX NEUROSTIMULATOR FOR 20 YRS/NO LONGER History of cardiac cath [facility] , ABNORMAL STRESS TEST...MILD WA...AUG 2022 NO STENT(S) History of esophagogastroduodenoscopy (EGD) History of oral surgery UPPER TEETH PULLED S/P colonoscopy S/P inguinal hernia repair S/P vasectomy Family History Father Cardiac disorder Mother Hypertension Other Family history of diabetes mellitus Social History Smoking Status: Former smoker Tobacco Type: Cigarettes Second Hand Exposure: No; Hx Alcohol Use: Yes Alcohol type: wine Hx Substance Use: No Preferred Language: Russian Communication Ability: Effective Supervisor Asbestos Removal Required: No Beliefs That Will Affect Care: None Current Living Situation: Spouse current occupational status: retired Other Information That Helps Us Care for You: No Feels Safe at Home: Yes Safety Concerns: Feels Safe At This Time Assistive Devices: None Allergies Allergies Allergy/AdvReac Type Severity Reaction Status Date / Time gentamicin Allergy Unknown PT'S Verified 01/30/23 00:26 FATHER "ALMOST FROM IT"--NEVER TOOK IT. Home Meds Home Medications Medication Instructions Recorded Confirmed aspirin 81 mg tablet,delayed 81 mg PO QAM 07/27/22 03/17/23 release atorvastatin 20 mg tablet 40 mg PO QAM 09/04/22 03/17/23 metoprolol succinate 25 mg 25 mg PO QPM 12/27/22 03/17/23 tablet,extended release 24 hr omeprazole 20 mg capsule,delayed 20 mg PO BID 12/27/22 03/17/23 release sacubitril 24 mg-valsartan 26 mg 1 tab PO BID 12/27/22 03/17/23 tablet (Entresto) Previous Rx's Medication Instructions Recorded Symbicort 160 mcg-4.5 2 puff inhalation BID #3 Inhalers 08/24/ mcg/actuation HFA aerosol inhaler (budesonide-formoterol) nebulizers #1 ea 08/24/20 tamsulosin 0.4 mg capsule 0.4 mg PO BID #180 caps 02/15/23 Results & Data (ED) Vital Signs Vital Signs - 24 hr 03/17/23 16:14 03/17/23 17:15 03/17/23 17:43 Temperature 38.2 C H Temperature Source Oral Pulse Rate 124 H 116 H Pulse Rate [Left Finger] 119 H Pulse Rhythm [Left Finger] Regular Pulse Strength [Left Finger] Normal Respiratory Rate 18 27 H Respiratory Effort / Characteristics Non-Labored Spontaneous Labored Respiratory Depth Normal Normal Respiratory Pattern Regular Regular Blood Pressure 125/82 Blood Pressure [Left Arm] 150/81 H Blood Pressure Mean 96 Blood Pressure Mean [Left Arm] 104 Blood Pressure Position Sitting Blood Pressure Position [Left Arm] Lying Pulse Oximetry 92 94 Oxygen Delivery Method Room Air Room Air Sepsis Recent Fever Within 48 Hours No Sepsis New/Unexplained Change in Mental Status N/A Sepsis Action Taken by Nursing No Action Required Home Medications Current Medication List: was personally reviewed by me Laboratory Data Attestation: I reviewed the patient's lab results. 03/17/23 16:40 03/17/23 16:40 Lab Results 03/17/23 03/17/23 03/17/23 Range/Units 16:40 16:40 16:40 WBC 17.12 H (4.8-10.8) K/ul RBC 4.56 L (4.70-6.10) M/uL Hgb 14.5 (14.0-18.0) g/dl Hct 41.5 L (42.0-52.0) % MCV 91.0 (80.0-100.0) fL MCH 31.8 (25.0-34.0) pg MCHC 34.9 (32.0-36.0) g/dL RDW Std Deviation 41.1 (36.4-46.3) fL RDW Coeff of Shirley 12.5 (11.5-14.5) % Plt Count 337 (130-400) K/uL MPV 9.2 L (9.4-12.4) fL Immature Gran % (Auto) 0.4 % Neut % (Auto) 90.2 % Lymph % (Auto) 3.7 % [place] % (Auto) 4.7 % Eos % (Auto) 0.5 % Baso % (Auto) 0.5 % Neut # (Auto) 15.46 H (1.40-6.50) K/uL Lymph # (Auto) 0.63 L (1.2-3.4) K/uL [place] # (Auto) 0.80 H (0.11-0.59) K/uL Eos # (Auto) 0.08 (0-0.50) K/uL Baso # (Auto) 0.09 (0-0.2) K/uL Immature Gran # (Auto) 0.06 (0.01-0.20) K/uL PT 10.7 (9.0-12.0) Seconds INR 1.0 (0.9-1.1) APTT 25.6 (21.0-31.0) Seconds PTT Ratio 0.9 Sodium 137 (136-145) mmol/L Potassium 4.0 (3.5-5.1) mmol/L Chloride 101 (98-107) mmol/L Carbon Dioxide 26 (21-32) mmol/L Anion Gap 10 (3-11) BUN 16 (6-23) mg/dl Creatinine 0.92 (0.6-1.4) mg/dl Est Cr Clr Drug Dosing 73.2 ml/min Est GFR ( Amer) 100.1 ml/min Est GFR (Non-Af Amer) 86.4 ml/min BUN/Creatinine Ratio 17.4 (10-20) Glucose 106 H (70-99(Fasting)) mg/dl Lactate (0.4-2.0) mmol/L Calcium 9.2 (8.6-10.3) mg/dl Magnesium 1.9 (1.7-2.4) mg/dl Total Bilirubin 0.7 (0.2-1.0) mg/dl AST 23 (13-39) U/L ALT 34 (7-52) U/L Alkaline Phosphatase 56 (34-104) U/L Total Protein 7.7 (6.0-8.3) gm/dl Albumin 4.5 (3.4-5.0) gm/dl Globulin 3.2 (2.5-4.0) gm/dl Albumin/Globulin Ratio 1.4 (0.9-2) Procalcitonin (0-0.5) ng/ml SARS-CoV-2 (PCR) (Negative) Influenza Type A (PCR) (Neg) Influenza Type B (PCR) (Neg) RSV (RT-PCR) (Neg) 03/17/23 03/17/23 03/17/23 Range/Units 16:40 17:57 18:14 WBC (4.8-10.8) K/ul RBC (4.70-6.10) M/uL Hgb (14.0-18.0) g/dl Hct (42.0-52.0) % MCV (80.0-100.0) fL MCH (25.0-34.0) pg MCHC (32.0-36.0) g/dL RDW Std Deviation (36.4-46.3) fL RDW Coeff of Shirley (11.5-14.5) % Plt Count (130-400) K/uL MPV (9.4-12.4) fL Immature Gran % (Auto) % Neut % (Auto) % Lymph % (Auto) % [place] % (Auto) % Eos % (Auto) % Baso % (Auto) % Neut # (Auto) (1.40-6.50) K/uL Lymph # (Auto) (1.2-3.4) K/uL [place] # (Auto) (0.11-0.59) K/uL Eos # (Auto) (0-0.50) K/uL Baso # (Auto) (0-0.2) K/uL Immature Gran # (Auto) (0.01-0.20) K/uL PT (9.0-12.0) Seconds INR (0.9-1.1) APTT (21.0-31.0) Seconds PTT Ratio Sodium (136-145) mmol/L Potassium (3.5-5.1) mmol/L Chloride (98-107) mmol/L Carbon Dioxide (21-32) mmol/L Anion Gap (3-11) BUN (6-23) mg/dl Creatinine (0.6-1.4) mg/dl Est Cr Clr Drug Dosing ml/min Est GFR ( Amer) ml/min Est GFR (Non-Af Amer) ml/min BUN/Creatinine Ratio (10-20) Glucose (70-99(Fasting)) mg/dl Lactate 1.1 (0.4-2.0) mmol/L Calcium (8.6-10.3) mg/dl Magnesium (1.7-2.4) mg/dl Total Bilirubin (0.2-1.0) mg/dl AST (13-39) U/L ALT (7-52) U/L Alkaline Phosphatase (34-104) U/L Total Protein (6.0-8.3) gm/dl Albumin (3.4-5.0) gm/dl Globulin (2.5-4.0) gm/dl Albumin/Globulin Ratio (0.9-2) Procalcitonin 0.07 (0-0.5) ng/ml SARS-CoV-2 (PCR) NEGATIVE (Negative) Influenza Type A (PCR) Negative (Neg) Influenza Type B (PCR) Negative (Neg) RSV (RT-PCR) Negative (Neg) Administered Medications Enoxaparin Sodium (Enoxaparin Inj 40 Mg/0.4 Ml Syr) 40 mg SQ Q24H MALLORY Stop: 04/16/23 21:59 Last Admin: 03/17/23 22:15 Dose: 40 mg Documented By: QG Guaifenesin (Guaifenesin 600 Mg Tabcr) 1,200 mg PO BID MALLORY Stop: 04/16/23 20:59 Last Admin: 03/17/23 22:17 Dose: 1,200 mg Documented By: QG Lactated Ringer's (Lr) 1,000 mls @ 100 mls/hr IV .Q10H MALLORY Stop: 03/18/23 04:59 Last Admin: 03/17/23 21:36 Dose: 100 mls/hr Documented By: QG Metoprolol Succinate (Metoprolol Succ 25mg Ext Rel Tab) 25 mg PO QPM MALLORY Stop: 04/16/23 20:59 Last Admin: 03/17/23 22:18 Dose: 25 mg Documented By: QG Sacubitril/Valsartan (Valsartan/Sacubitril 26/24mg Tab) 1 tab PO BID MALLORY Stop: 04/16/23 20:59 Last Admin: 03/17/23 22:16 Dose: 1 tab Documented By: QG Tamsulosin HCl (Tamsulosin Hcl 0.4 Mg Cap) 0.4 mg PO BID MALLORY Stop: 04/16/23 20:59 Last Admin: 03/17/23 22:18 Dose: 0.4 mg Documented By: HILARIO Discontinued Medications Acetaminophen (Acetaminophen 500 Mg Tab) 1,000 mg PO NOW STA Stop: 03/17/23 17:23 Last Admin: 03/17/23 17:50 Dose: 1,000 mg Documented By: JUAN ANTONIO Albuterol (Albut/Ipratrop 3mg/0.5mg Neb 3 Ml Vial) 3 ml NEB NOW STA; Protocol Stop: 03/17/23 17:22 Last Admin: 03/17/23 18:10 Dose: Not Given Documented By: JUAN ANTONIO Ceftriaxone Sodium (Rocephin) 2,000 mg in 70 mls @ 140 mls/hr IV NOW STA Stop: 03/17/23 17:50 Last Infusion: 03/17/23 18:49 Dose: 0 mls/hr Documented By: JUAN ANTONIO Admin: 03/17/23 17:48 Dose: 140 mls/hr Documented By: JUAN ANTONIO Doxycycline Hyclate 100 mg/ (Dextrose) 110 mls @ 50 mls/hr IV NOW STA Stop: 03/17/23 19:32 Last Admin: 03/17/23 22:13 Dose: 50 mls/hr Documented By: HILARIO Sodium Chloride (Nss 1000ml) 1,000 mls @ 999 mls/hr IV .Q1H1M ONE Stop: 03/17/23 18:21 Last Infusion: 03/17/23 19:55 Dose: 0 mls/hr Documented By: Admin: 03/17/23 17:48 Dose: 999 mls/hr Documented By: JUAN ANTONIO Levalbuterol HCl (Levalbuterol Hcl 1.25 Mg/3 Ml Neb) 1.25 mg NEB NOW STA; Protocol Stop: 03/17/23 17:25 Last Admin: 03/17/23 18:07 Dose: 1.25 mg Documented By: JUAN ANTONIO Levalbuterol HCl (Levalbuterol Hcl 1.25 Mg/3 Ml Neb) 1.25 mg NEB Q6R MALLORY; Protocol Stop: 04/16/23 18:59 Last Admin: 03/17/23 21:18 Dose: Not Given Documented By: NIYA Methylprednisolone (Methylprednisolone 125 Mg/2 Ml Vial) 60 mg IV NOW STA Stop: 03/17/23 17:22 Last Admin: 03/17/23 17:45 Dose: 60 mg Documented By: JUAN ANTONIO Imaging Data Radiologist's Impression: Chest X-Ray 03/17/23 16:19 XR chest 1V not portable HISTORY: 68 years-old Male Sepsis acute shortness of breath with sepsis COMPARISON: 01/29/2023 TECHNIQUE: PA view of the chest FINDINGS: FINDINGS: Cardiomediastinal and hilar silhouettes are within normal limits. No pneumothorax, pleural effusion, or pulmonary edema. Interval development of mild ill-defined left basilar densities. Emphysema with chronic interstitial coarsening. Degenerative changes of the shoulders and spine. IMPRESSION: Emphysema with new mild left basilar opacities suggestive of atelectasis versus developing pneumonia. ACT 112: Negative or not required by law. The above report was generated using voice recognition software. It may contain grammatical, syntax or spelling errors. Electronically signed by: Richard Valdes M.D. 03/17/2023 6:40 PM Discharge Plan Visit Data Chief Complaint: Cough Stated Complaint: POSSIBLE PNEUMONIA, COUGHING, CHILLS ED Provider: Reyes Negron Discharge Problem: COPD (chronic obstructive pulmonary disease), Pneumonitis, Fever Patient Disposition: Admitted As Inpatient Discharge Instructions Interventions: ED Discharge Assessment Last Done: 03/17/23 20:01
[2023-03-17] MEDS ORDERED: cefTRIAXone SODIUM 2,000 MG/70 ML BAG IV STA (17:21)
[2023-03-17] MEDS ORDERED: DOXYCYCLINE HYCLATE 100 MG in DEXTROSE 5% 100 ML IV STA (17:21)
[2023-03-17] MEDS ORDERED: SODIUM CHLORIDE 0.9% 1000ML 1,000 ML IV ONE (17:21)
[2023-03-17] MEDS ORDERED: ALBUT/IPRATROP 3MG/0.5MG NEB 3 ML VIAL NEB STA (17:21)
[2023-03-17] MEDS ORDERED: methylPREDNISolone 125 MG/2 ML VIAL IV STA (17:21)
[2023-03-17] MEDS ORDERED: ACETAMINOPHEN 500 MG TAB PO STA (17:22)
[2023-03-17] MEDS ORDERED: LEVALBUTEROL HCL 1.25 MG/3 ML NEB NEB STA (17:24)
[2023-03-17 17:29] LABS: Albumin Globulin Ratio 1.4 (0.9-2); Albumin Level 4.5 gm/dl (3.4-5.0); BUN Creatinine Ratio 17.4 (10-20); Bilirubin,Total 0.7 mg/dl (0.2-1.0); Calcium 9.2 mg/dl (8.6-10.3); Creatinine Clr Calc Pharmacy 73.2 ml/min; Est GFR (African American) 100.1 ml/min; Est GFR (Non-African American) 86.4 ml/min; Globulin 3.2 gm/dl (2.5-4.0); Magnesium 1.9 mg/dl (1.7-2.4); Total Protein 7.7 gm/dl (6.0-8.3)
[2023-03-17 17:32] LABS: Basophils # (auto) 0.09 K/uL (0-0.2); Basophils % (auto) 0.5 %; Eosinophils # (auto) 0.08 K/uL (0-0.50); Eosinophils % (auto) 0.5 %; Immature Granulocytes # (auto) 0.06 K/uL (0.01-0.20); Immature Granulocytes % (auto) 0.4 %; Lymphocytes # (auto) 0.63 K/uL (1.2-3.4); Lymphocytes % (auto) 3.7 %; Monocytes % (auto) 4.7 %; Neutrophils # (auto) 15.46 K/uL (1.40-6.50); Neutrophils % (auto) 90.2 %
[2023-03-17 17:46] LABS: Partial Thromboplastin Ratio 0.9; Partial Thromboplastin Time 25.6 Seconds (21.0-31.0); Prothrombin Time 10.7 Seconds (9.0-12.0)
--- NOTE | 2023-03-17 18:32 | History & Physical Report ---
Date of Service March 17, 2023 Assessment & Plan (1) COPD exacerbation: Plan: -Admit to [facility] on continuous pulse oximetry -Currently stable on RA -Negative for Covid/Influenza/RSV, CXR without obvious consolidation, procal negative -Given a dose of Ceftriaxone and Doxycycline in the ED, will continue with Doxycycline BID for now -Will obtain full respiratory biofire and sputum culture w/gram stain for further evaluation -S/P 60 mg IV Solu-medrol in the ED, continue with 60 mg IV daily for now, can transition to PO steroids when he's more stable -Continue home BID Symbicort, will continue with scheduled Levalbuterol for now due to his sinus tach on admission -Incentive spirometry, flutter therapy, scheduled Robitussin -BL SCD's and Sub-Q Lovenox for DVT PPX -AM CBC, BMP, Mag (2) Sinus tachycardia: Plan: -Noted to be in sinus tach with HR in the 110's in the ED -No chest pain, acute ST segment or T-wave changes noted -Likely due to his acute illness and dehydration -S/P 1L NSS in the ED, will give a liter of LR on admission (3) SOB (shortness of breath): Plan: -See COPD exacerbation (4) HFrEF (heart failure with reduced ejection fraction): Plan: -Examines dry-euvolemic -Continue IV fluids -Continue Entresto (5) BPH with obstruction/lower urinary tract symptoms: Plan: -Continue flomax Plan -The patient was discussed with Dr. Martel at the time of the admission -BL SCD's and Sub-Q lovenox for DVT PPX -Heart healthy diet History of Present Illness Chief Complaint: SOB, cough Primary Care Provider: Tangela Martinez MD Gino is a 68 year old male with a PMH significant for severe COPD, emphysema, BPH, hyperlipidemia, and low back pain who presented to the [facility] ED on 03/17/23 with complaints of SOB and cough. He was found to be febrile at 38.2, tachycardic with HR in the 110's, tachypneic, and stable on RA. Labs were significant for a leukocytosis of 17 with left shift of 15, procal of 0.07, Prior to admission the patient was given a dose of ceftriaxone, doxycycline, albuterol treatment, 1gm IV tylenol, a levalbuterol treatment, 60 mg methylprednisolone, and 1L NSS. At the time of the exam the patient was sitting in bed in no acute distress, currently stable on RA. He states that he started to develop a fever, productive cough with yellow sputum, and fatigue yesterday. Since then he has been mainly sleeping and his oral intake has been poor. He is not on O2 at home but feels as though he is more SOB than his baseline. He does not have a productive cough at baseline. He has not been around sick contacts that he knows of. He now follows with the [facility]. He denies chest pain, abd pain, nausea, vomiting, diarrhea, dysuria, hematuria, melena, diarrhea, LE swelling and any sores or wounds. Please refer to Dr. Martel's attestation for any changes to the treatment plan Allergies Allergy/AdvReac Type Severity Reaction Status Date / Time gentamicin Allergy Unknown PT'S Verified 01/30/23 00:26 FATHER "ALMOST FROM IT"--NEVER TOOK IT. Home Medications Medication Instructions Recorded Confirmed Type Symbicort 160 mcg-4.5 2 puff inhalation BID #3 Inhalers 08/24/20 03/17/23 Rx mcg/actuation HFA aerosol inhaler (budesonide-formoterol) nebulizers #1 ea 08/24/20 03/17/23 Rx aspirin 81 mg tablet,delayed 81 mg PO QAM 07/27/22 03/17/23 History release atorvastatin 20 mg tablet 40 mg PO QAM 09/04/22 03/17/23 History metoprolol succinate 25 mg 25 mg PO QPM 12/27/22 03/17/23 History tablet,extended release 24 hr omeprazole 20 mg capsule,delayed 20 mg PO BID 12/27/22 03/17/23 History release sacubitril 24 mg-valsartan 26 mg 1 tab PO BID 12/27/22 03/17/23 History tablet (Entresto) tamsulosin 0.4 mg capsule 0.4 mg PO BID #180 caps 02/15/23 03/17/23 Rx Past Med/Surg History Medical History BPH (benign prostatic hyperplasia) Chronic respiratory failure follows with pulmo in [facility] dr cole gonzalez states only has 17% pulmonary function Diverticulosis Gastritis Heartburn History of blood clots SUSPECTED RIGHT LEG S/P HEART CATH AUG 2022 - F/U SCAN SHOWED NO SIGNS OF BL OOD CLOTS NO FURTHER PROBLEMS History of diverticulitis AUG 2022 History of stress test 06/28/22 done at [facility] CATH DONE FOLLOWING ABNORMAL STRESS TEST... MILD MS...NO STENT(S) ...DR HAYDEN Hyperlipidemia Multiple lung nodules on CT CT SCAN NOV 2022 AND THEY WERE GONE Pulmonary emphysema Very severe chronic obstructive pulmonary disease ONLY HAVE 21 % OF LUNG CAPACITY, SOB WITH MILD EXERTION Surgical History History of back surgery HX NEUROSTIMULATOR FOR 20 YRS/NO LONGER History of cardiac cath [facility] , ABNORMAL STRESS TEST...MILD MS...AUG 2022 NO STENT(S) History of esophagogastroduodenoscopy (EGD) History of oral surgery UPPER TEETH PULLED S/P colonoscopy S/P inguinal hernia repair S/P vasectomy Family History Father Cardiac disorder Mother Hypertension Other Family history of diabetes mellitus Social History Smoking Status: Former smoker Tobacco Type: Cigarettes Second Hand Exposure: No; Hx Alcohol Use: Yes Alcohol type: wine Hx Substance Use: No Preferred Language: [place] Communication Ability: Effective Gambling Monitor Required: No Beliefs That Will Affect Care: None Current Living Situation: Spouse current occupational status: retired Other Information That Helps Us Care for You: No Feels Safe at Home: Yes Safety Concerns: Feels Safe At This Time Assistive Devices: Nebulizer Physical Exam Physical Exam: Physical Exam: General: In no acute distress, stated age, is ill but non-toxic appearing HEENT: Normocephalic, atraumatic, no scleral icterus, pupils around round, symmetrical, and reactive to light, dry mucus membranes, trachea midline, no thyromegaly Chest/Pulm: No respiratory distress, symmetrical chest expansion, expiratory wheezing and rhonchi throughout Cardiac: tachycardic rate, regular rhythm, no murmurs noted Abdomen: Negative for ascites and bruising, normoactive bowel sounds, soft, non-tender to palpation throughout Musculoskeletal: Symmetrical and without signs of acute trauma, upper and lower extremities with full ROM, no atrophy, spasticity, or flaccidity Extremities: Radial, dorsalis pedis, and posterior tibial pulses are intact and symmetrical, no edema noted in the BL LE's Skin: Warm, dry, no rashes , lesions, or scars noted Neuro: Alert and oriented to person, place, month, year, and president, no focal defects, no tremors noted Psych: No acute distress, calm and cooperative during the exam Results & Data Results & Data Vital Signs (Past 12 Hours) Vital Signs Temp Pulse Pulse Resp BP BP Pulse Ox 03/17/23 17:43 116 H 03/17/23 17:15 119 H 27 H 150/81 H 94 03/17/23 16:14 38.2 C H 124 H 18 125/82 92 O2 Del Method 03/17/23 17:43 03/17/23 17:15 Room Air 03/17/23 16:14 Room Air Laboratory Results Abnormal lab results 03/17/23 03/17/23 Range/Units 16:40 16:40 WBC 17.12 H (4.8-10.8) K/ul RBC 4.56 L (4.70-6.10) M/uL Hct 41.5 L (42.0-52.0) % MPV 9.2 L (9.4-12.4) fL Neut # (Auto) 15.46 H (1.40-6.50) K/uL Lymph # (Auto) 0.63 L (1.2-3.4) K/uL [place] # (Auto) 0.80 H (0.11-0.59) K/uL Glucose 106 H (70-99(Fasting)) mg/dl Diagnostic Findings Chest X-Ray 03/17/23 16:19 XR chest 1V not portable HISTORY: 68 years-old Male Sepsis acute shortness of breath with sepsis COMPARISON: 01/29/2023 TECHNIQUE: PA view of the chest FINDINGS: FINDINGS: Cardiomediastinal and hilar silhouettes are within normal limits. No pneumothorax, pleural effusion, or pulmonary edema. Interval development of mild ill-defined left basilar densities. Emphysema with chronic interstitial coarsening. Degenerative changes of the shoulders and spine. IMPRESSION: Emphysema with new mild left basilar opacities suggestive of atelectasis versus developing pneumonia. ACT 112: Negative or not required by law. The above report was generated using voice recognition software. It may contain grammatical, syntax or spelling errors. Electronically signed by: Richard Valdes M.D. 03/17/2023 6:40 PM ECG Additional Comments: Sinus tachycardia Possible Left atrial enlargement Borderline ECG When compared with ECG of 29-JAN-2023 21:52, No significant change was found Code Status & VTE Plan Code Status Full code Supervising Physician Co-Signing Physician Notes I personally saw and examined the patient. I verified all stevens points and agree with Aryan Salgado PA-C with the following exceptions and/or additions: 68 year old male presents to the ER with shortness of breath, fever, productive cough with yellow sputum for last 2 days. O/E HS RRR, no murmurs, chest with expiratory wheezing and rhonchi throughout, Abdo SNT A/P COPD exacerbation without evidence of bacterial pneumonia - continue solu-medrol 60mg IV daily, duonebs QID, doxycycline 100mg PO BID, Symbicort INH BID PG Care Time/CCT Total # of Minutes Spent Total Time Spent with Patient: Total time spent is greater than 50% in coordination of care (as documented) at patient's floor/unit and/or counseling patient: Coding [place] [address] INT INP/OBS CARE 2/55MIN Patient Type Established Medical Decision Making Moderate Complexity Diagnoses COPD exacerbation J44.1 Sinus tachycardia R00.0 SOB (shortness of breath) R06.02 HFrEF (heart failure with reduced ejection fraction) I50.20 BPH with obstruction/lower urinary tract symptoms N40.1; N13.8
--- NOTE | 2023-03-17 18:42 | XRay Report ---
XR chest 1V not portable HISTORY: 68 years-old Male Sepsis acute shortness of breath with sepsis COMPARISON: 01/29/2023 TECHNIQUE: PA view of the chest FINDINGS: FINDINGS: Cardiomediastinal and hilar silhouettes are within normal limits. No pneumothorax, pleural effusion, or pulmonary edema. Interval development of mild ill-defined left basilar densities. Emphys luis manuel with chronic interstitial coarsening. Degenerative changes of the shoulders and spine. IMPRESSION: Emphysema with new mild left basilar opacities suggestive of atelectasis versus developin g pneumonia. ACT 112: Negative or not required by law. The above report was generated using voice recognition software. It may contain grammatical, syntax o r spelling errors. Electronically signed by: Richard Valdes M.D. 03/17/2023 6:40 PM
[2023-03-17 18:57] LABS: Influenza A virus by PCR Negative (Neg); Influenza B virus by PCR Negative (Neg); RSV by PCR Negative (Neg); SARS CoV2 RNA(COVID-19) Ceph NEGATIVE (Negative)
[2023-03-17] MEDS ORDERED: LEVALBUTEROL HCL 1.25 MG/3 ML NEB NEB SCH (19:00)
[2023-03-17] MEDS ORDERED: LACTATED RINGER'S 1,000 ML IV SCH (19:00)
[2023-03-17] MEDS ORDERED: guaiFENesin SUGAR FREE 200 MG/10 ML UDC PO SCH (20:00)
[2023-03-17] MEDS ORDERED: DEXTROMETHORPHAN POLYMR COMPLX 60 MG/10 ML UDP PO PRN (21:00)
[2023-03-17] MEDS: ENOXAPARIN INJ 40 MG/0.4 ML SYR SQ SCH (22:15)
[2023-03-17] MEDS: VALSARTAN/SACUBITRIL 26/24MG TAB PO SCH (22:16)
[2023-03-17] MEDS: guaiFENesin 600 MG TABCR PO SCH (22:17)
[2023-03-17] MEDS: METOPROLOL SUCC 25MG EXT REL TAB PO SCH (22:18)
[2023-03-17] MEDS: TAMSULOSIN HCL 0.4 MG CAP PO SCH (22:18)
[2023-03-17] MEDS ORDERED: LEVALBUTEROL HCL 1.25 MG/3 ML NEB NEB PRN (23:10)
[2023-03-17 23:22] LABS: Adenovirus PCR Not Detected (NotDetected); Bordetella parapertussis PCR Not Detected (NotDetected); Bordetella pertussis PCR Not Detected (NotDetected); Chlamydia pneumoniae PCR Not Detected (NotDetected); Coronavirus 229E PCR Not Detected (NotDetected); Coronavirus CoV-2 (COVID19)PCR Not Detected (NotDetected); Coronavirus HKU1 PCR Not Detected (NotDetected); Coronavirus NL63 PCR Not Detected (NotDetected); Coronavirus OC43PCR Not Detected (NotDetected); Human Metapneumovirus PCR Not Detected (NotDetected); Influenza A PCR Not Detected (NotDetected); Influenza B PCR Not Detected (NotDetected); Mycoplasma pneumoniae PCR Not Detected (NotDetected); Parainfluenza Virus 1 PCR Not Detected (NotDetected); Parainfluenza Virus 2 PCR Not Detected (NotDetected); Parainfluenza Virus 3 PCR Not Detected (NotDetected); Parainfluenza Virus 4 PCR Not Detected (NotDetected); Respiratory Syncytial VirusPCR Not Detected (NotDetected); Rhinovirus/Enterovirus PCR Not Detected (NotDetected)
[2023-03-18 00:13] LABS: Appearance Urine Clear (Clear); Bilirubin Urine Negative (Negative); Blood Urine Negative (Negative); Color Urine Orange; Glucose Urine UA 2+ (Negative); Ketones Urine Negative (Negative); Leukocyte Esterase Urine Negative (Negative); Nitrite Urine Negative (Negative); Protein Urine Negative (Negative); Specific Gravity Urine 1.013 (1.000-1.030); Urobilinogen Urine Negative (Negative)
[2023-03-18 07:44] LABS: Hematocrit (blood only) 35.9 % (42.0-52.0); Hemoglobin 12.5 g/dl (14.0-18.0); Mean Corpuscular Hemoglobin 31.7 pg (25.0-34.0); Mean Corpuscular Hgb Conc 34.8 g/dL (32.0-36.0); Mean Corpuscular Volume 91.1 fL (80.0-100.0); Mean Platelet Volume 9.5 fL (9.4-12.4); Platelet Count 279 K/uL (130-400); RDW Coefficient of Variation 12.5 % (11.5-14.5); RDW Standard Deviation 41.7 fL (36.4-46.3); Red Blood Count 3.94 M/uL (4.70-6.10); White Blood Count 12.42 K/ul (4.8-10.8)
[2023-03-18 08:03] LABS: Basophils # (auto) 0.01 K/uL (0-0.2); Basophils % (auto) 0.1 %; Immature Granulocytes # (auto) 0.08 K/uL (0.01-0.20); Immature Granulocytes % (auto) 0.6 %; Lymphocytes # (auto) 0.46 K/uL (1.2-3.4); Lymphocytes % (auto) 3.7 %; Monocytes # (auto) 0.27 K/uL (0.11-0.59); Monocytes % (auto) 2.2 %; Neutrophils % (auto) 93.4 %
[2023-03-18 08:04] LABS: BUN Creatinine Ratio 19.5 (10-20); Calcium 8.7 mg/dl (8.6-10.3); Creatinine Clr Calc Pharmacy 86.1 ml/min; Est GFR (African American) 109.6 ml/min; Est GFR (Non-African American) 94.6 ml/min; Potassium 4.2 mmol/L (3.5-5.1)
[2023-03-18] MEDS: TAMSULOSIN HCL 0.4 MG CAP PO SCH ×2 (08:15→20:22)
[2023-03-18] MEDS: methylPREDNISolone 60 MG in SYRINGE 0 ML IV SCH (08:15)
[2023-03-18] MEDS: guaiFENesin 600 MG TABCR PO SCH ×2 (08:15→20:18)
[2023-03-18] MEDS: ASPIRIN 81 MG ECTAB PO SCH (08:15)
[2023-03-18] MEDS: FLUTICASONE/VILANTEROL 200/25MCG 14 PUFFS/INHALER INH SCH (08:16)
[2023-03-18] MEDS: ATORVASTATIN 40 MG TAB PO SCH (08:16)
[2023-03-18] MEDS: VALSARTAN/SACUBITRIL 26/24MG TAB PO SCH ×2 (08:17→20:22)
[2023-03-18] MEDS ORDERED: methylPREDNISolone 125 MG/2 ML VIAL IV SCH (09:00)
[2023-03-18] MEDS: DOXYCYCLINE HYCLATE 100 MG in DEXTROSE 5% 100 ML IV SCH ×2 (11:10→21:11)
--- NOTE | 2023-03-18 13:43 | Hospitalist Progress Note ---
Date of Service March 18, 2023 Assessment & Plan (1) COPD exacerbation: Plan: -Currently stable on RA -Negative for Covid/Influenza/RSV, CXR without obvious consolidation, procal negative -On doxycycline BID for now Respiratory viral panel negative. Sputum culture pending. Continue Solu-Medrol 60 mg IV daily -Continue home BID Symbicort, continue scheduled levalbuterol -Incentive spirometry, flutter therapy, scheduled Robitussin (2) Sinus tachycardia: Plan: -Noted to be in sinus tach with HR in the 110's in the ED Most likely secondary to respiratory distress on admission Heart rate has normalized now -No chest pain, acute ST segment or T-wave changes noted (3) SOB (shortness of breath): Plan: -See COPD exacerbation (4) HFrEF (heart failure with reduced ejection fraction): Plan: Discontinue IV fluids -Continue Entresto (5) BPH with obstruction/lower urinary tract symptoms: Plan: -Continue flomax Plan -BL SCD's and Sub-Q lovenox for DVT PPX -Heart healthy diet Admission and Anticipated Discharge Date Admission Date: March 17, 2023 Subjective Patient feels better overall. But says that he is still not back to his baseline. He just went to the bathroom and came back and is now huffing and puffing again. Review of Systems Review of Systems: All systems reviewed & are unremarkable except as noted in Subjective Physical Exam Physical Exam: General: Awake, conversant Heart: S1, S2/regular rate and rhythm, no murmur rubs or gallops Lungs: Distant breath sounds bilaterally. Minimal wheezing heard. Normal effort Abdomen: Soft/nontender/nondistended. No hepatosplenomegaly Extremities: No clubbing/cyanosis. No edema Behavior: Appropriate, cooperative Results & Data Results & Data Vital Signs (Past 12 Hours) Vital Signs Temp Pulse Pulse Resp BP Pulse Ox O2 Del Method 03/18/23 12:00 36.5 C 88 18 134/72 95 Room Air 03/18/23 07:44 85 03/18/23 07:38 36.5 C 89 18 131/73 91 Room Air 03/18/23 06:10 83 18 95 Room Air 03/18/23 02:38 36.7 C 78 16 103/60 92 Room Air PG Care Time/CCT Total # of Minutes Spent Total Time Spent with Patient: Total time spent is greater than 50% in coordination of care (as documented) at patient's floor/unit and/or counseling patient: Coding Level of Care Code 23625 SUB INP/OBS CARE 2/35MIN Diagnoses COPD exacerbation J44.1 Sinus tachycardia R00.0 SOB (shortness of breath) R06.02 HFrEF (heart failure with reduced ejection fraction) I50.20 BPH with obstruction/lower urinary tract symptoms N40.1; N13.8
--- NOTE | 2023-03-18 14:08 | Electrocardiogram Report ---
Test Reason : Blood Pressure : / mmHG Vent. Rate : 123 BPM Atrial Rate : 123 BPM P-R Int : 166 ms QRS Dur : 076 ms QT Int : 290 ms P-R-T Axes : 081 072 075 degrees QTc Int : 415 ms Sinus tachycardia Possible Left atrial enlargement Borderline ECG When compared with ECG of 29-JAN-2023 21:52, No significant change was found Confirmed by Zoran Mercado ([id number]) on 03/18/2023 2:07:59 PM Referred By: REFERRED SELF Confirmed By:Zoran Mercado
[2023-03-18] MEDS ORDERED: DEXTROMETHORPHAN POLYMR COMPLX 60 MG/10 ML UDP PO PRN (14:30)
[2023-03-18] MEDS: ACETAMINOPHEN 500 MG TAB PO PRN (18:48)
[2023-03-18] MEDS: METOPROLOL SUCC 25MG EXT REL TAB PO SCH (20:22)
[2023-03-18] MEDS ORDERED: BUTALBITAL/ACETAMIN/CAFFEINE TAB PO STA (20:41)
[2023-03-18] MEDS: ENOXAPARIN INJ 40 MG/0.4 ML SYR SQ SCH (21:11)
[2023-03-19 08:11] LABS: Basophils # (auto) 0.03 K/uL (0-0.2); Basophils % (auto) 0.2 %; Eosinophils # (auto) 0.01 K/uL (0-0.50); Eosinophils % (auto) 0.1 %; Hematocrit (blood only) 39.5 % (42.0-52.0); Hemoglobin 13.7 g/dl (14.0-18.0); Immature Granulocytes % (auto) 0.7 %; Lymphocytes # (auto) 1.43 K/uL (1.2-3.4); Lymphocytes % (auto) 9.6 %; Mean Corpuscular Hemoglobin 31.9 pg (25.0-34.0); Mean Corpuscular Hgb Conc 34.7 g/dL (32.0-36.0); Mean Corpuscular Volume 91.9 fL (80.0-100.0); Mean Platelet Volume 9.2 fL (9.4-12.4); Monocytes # (auto) 0.88 K/uL (0.11-0.59); Monocytes % (auto) 5.9 %; Neutrophils # (auto) 12.38 K/uL (1.40-6.50); Neutrophils % (auto) 83.5 %; Platelet Count 337 K/uL (130-400); RDW Coefficient of Variation 12.5 % (11.5-14.5); RDW Standard Deviation 42.1 fL (36.4-46.3); White Blood Count 14.83 K/ul (4.8-10.8)
[2023-03-19 08:26] LABS: BUN Creatinine Ratio 21.4 (10-20); Calcium 9.1 mg/dl (8.6-10.3); Creatinine Clr Calc Pharmacy 69.3 ml/min; Est GFR (African American) 92.7 ml/min; Potassium 4.1 mmol/L (3.5-5.1)
[2023-03-19] MEDS: DOXYCYCLINE HYCLATE 100 MG in DEXTROSE 5% 100 ML IV SCH ×2 (10:15→21:29)
[2023-03-19] MEDS: ATORVASTATIN 40 MG TAB PO SCH (10:16)
[2023-03-19] MEDS: TAMSULOSIN HCL 0.4 MG CAP PO SCH ×2 (10:16→20:38)
[2023-03-19] MEDS: guaiFENesin 600 MG TABCR PO SCH ×2 (10:16→20:39)
[2023-03-19] MEDS: methylPREDNISolone 60 MG in SYRINGE 0 ML IV SCH (10:16)
[2023-03-19] MEDS: VALSARTAN/SACUBITRIL 26/24MG TAB PO SCH ×2 (10:16→20:38)
[2023-03-19] MEDS: ASPIRIN 81 MG ECTAB PO SCH (10:16)
[2023-03-19] MEDS: FLUTICASONE/VILANTEROL 200/25MCG 14 PUFFS/INHALER INH SCH (10:17)
--- NOTE | 2023-03-19 12:19 | Hospitalist Progress Note ---
Date of Service March 19, 2023 Assessment & Plan (1) COPD exacerbation: Plan: -Currently stable on RA -Negative for Covid/Influenza/RSV, CXR without obvious consolidation, procal negative -On doxycycline BID for now Respiratory viral panel negative. Sputum culture pending. Discontinue Solu-Medrol today Start prednisone tomorrow, ordered -Continue home BID Symbicort, continue scheduled levalbuterol -Incentive spirometry, flutter therapy, scheduled Robitussin (2) Sinus tachycardia: Plan: -Noted to be in sinus tach with HR in the 110's in the ED Most likely secondary to respiratory distress on admission Heart rate has normalized now -No chest pain, acute ST segment or T-wave changes noted (3) SOB (shortness of breath): Plan: -See COPD exacerbation (4) HFrEF (heart failure with reduced ejection fraction): Plan: Discontinue IV fluids -Continue Entresto (5) BPH with obstruction/lower urinary tract symptoms: Plan: -Continue flomax Plan -BL SCD's and Sub-Q lovenox for DVT PPX -Heart healthy diet Likely discharge tomorrow 03/20 Admission and Anticipated Discharge Date Admission Date: March 17, 2023 Subjective Patient feels better today. He says that he was not as short of breath when he came back from the bathroom today. Review of Systems Review of Systems: All systems reviewed & are unremarkable except as noted in Subjective Physical Exam Physical Exam: General: Awake, conversant Heart: S1, S2/regular rate and rhythm, no murmur rubs or gallops Lungs: Distant breath sounds bilaterally. Minimal wheezing heard. Normal effort Abdomen: Soft/nontender/nondistended. No hepatosplenomegaly Extremities: No clubbing/cyanosis. No edema Behavior: Appropriate, cooperative Results & Data Results & Data Vital Signs (Past 12 Hours) Vital Signs Temp Pulse Pulse Pulse Resp BP Pulse Ox 03/19/23 11:24 36.9 C 92 H 18 166/83 H 97 03/19/23 09:24 03/19/23 07:43 36.7 C 84 18 139/82 96 03/19/23 07:00 92 H 03/19/23 04:21 106/61 03/19/23 03:00 36.5 C 84 18 95/58 L 93 O2 Del Method 03/19/23 11:24 Room Air 03/19/23 09:24 Room Air 03/19/23 07:43 Room Air 03/19/23 07:00 03/19/23 04:21 03/19/23 03:00 Room Air PG Care Time/CCT Total # of Minutes Spent Total Time Spent with Patient: Total time spent is greater than 50% in coordination of care (as documented) at patient's floor/unit and/or counseling patient: Coding Level of Care Code 35433 SUB INP/OBS CARE 2/35MIN Diagnoses COPD exacerbation J44.1 Sinus tachycardia R00.0 SOB (shortness of breath) R06.02 HFrEF (heart failure with reduced ejection fraction) I50.20 BPH with obstruction/lower urinary tract symptoms N40.1; N13.8
[2023-03-19] MEDS ORDERED: predniSONE 20 MG TAB PO SCH (12:30)
[2023-03-19] MEDS: ACETAMINOPHEN 500 MG TAB PO PRN (13:08)
[2023-03-19] MEDS ORDERED: BUTALBITAL/ACETAMIN/CAFFEINE TAB PO STA (20:16)
[2023-03-19] MEDS: METOPROLOL SUCC 25MG EXT REL TAB PO SCH (20:39)
[2023-03-19] MEDS: ENOXAPARIN INJ 40 MG/0.4 ML SYR SQ SCH (21:33)
[2023-03-20 06:07] LABS: Basophils # (auto) 0.01 K/uL (0-0.2); Basophils % (auto) 0.1 %; Hematocrit (blood only) 36.5 % (42.0-52.0); Hemoglobin 12.8 g/dl (14.0-18.0); Immature Granulocytes % (auto) 0.9 %; Lymphocytes # (auto) 1.43 K/uL (1.2-3.4); Lymphocytes % (auto) 12.8 %; Mean Corpuscular Hgb Conc 35.1 g/dL (32.0-36.0); Mean Corpuscular Volume 91.3 fL (80.0-100.0); Mean Platelet Volume 9.2 fL (9.4-12.4); Monocytes # (auto) 0.65 K/uL (0.11-0.59); Monocytes % (auto) 5.8 %; Neutrophils # (auto) 8.94 K/uL (1.40-6.50); Neutrophils % (auto) 80.4 %; Platelet Count 349 K/uL (130-400); RDW Coefficient of Variation 12.3 % (11.5-14.5); RDW Standard Deviation 41.1 fL (36.4-46.3); White Blood Count 11.13 K/ul (4.8-10.8)
[2023-03-20 06:25] LABS: BUN Creatinine Ratio 22.8 (10-20); Calcium 8.7 mg/dl (8.6-10.3); Creatinine Clr Calc Pharmacy 64.8 ml/min; Est GFR (African American) 89.4 ml/min; Est GFR (Non-African American) 77.1 ml/min; Magnesium 1.9 mg/dl (1.7-2.4); Potassium 3.9 mmol/L (3.5-5.1)
[2023-03-20] MEDS: guaiFENesin 600 MG TABCR PO SCH (08:20)
[2023-03-20] MEDS: ATORVASTATIN 40 MG TAB PO SCH (08:21)
[2023-03-20] MEDS: FLUTICASONE/VILANTEROL 200/25MCG 14 PUFFS/INHALER INH SCH (08:21)
[2023-03-20] MEDS: ASPIRIN 81 MG ECTAB PO SCH (08:21)
[2023-03-20] MEDS: TAMSULOSIN HCL 0.4 MG CAP PO SCH (08:21)
[2023-03-20] MEDS: VALSARTAN/SACUBITRIL 26/24MG TAB PO SCH (08:21)
[2023-03-20] MEDS ORDERED: predniSONE 20 MG TAB PO SCH (09:00)
[2023-03-20] MEDS: DOXYCYCLINE HYCLATE 100 MG in DEXTROSE 5% 100 ML IV SCH (09:22)
--- NOTE | 2023-03-20 11:54 | Discharge Summary ---
Date of Service March 20, 2023 Admission HPI Per Admitting Provider Gino is a 68 year old male with a PMH significant for severe COPD, emphysema, BPH, hyperlipidemia, and low back pain who presented to the [facility] ED on 03/17/23 with complaints of SOB and cough. He was found to be febrile at 38.2, tachycardic with HR in the 110's, tachypneic, and stable on RA. Labs were significant for a leukocytosis of 17 with left shift of 15, procal of 0.07, Prior to admission the patient was given a dose of ceftriaxone, doxycycline, albuterol treatment, 1gm IV tylenol, a levalbuterol treatment, 60 mg methylprednisolone, and 1L NSS. At the time of the exam the patient was sitting in bed in no acute distress, currently stable on RA. He states that he started to develop a fever, productive cough with yellow sputum, and fatigue yesterday. Since then he has been mainly sleeping and his oral intake has been poor. He is not on O2 at home but feels as though he is more SOB than his baseline. He does not have a productive cough at baseline. He has not been around sick contacts that he knows of. He now follows with the [facility]. He denies chest pain, abd pain, nausea, vomiting, diarrhea, dysuria, hematuria, melena, diarrhea, LE swelling and any sores or wounds. Please refer to Dr. Martel's attestation for any changes to the treatment plan Discharge Data Allergies Allergy/AdvReac Type Severity Reaction Status Date / Time gentamicin Allergy Unknown PT'S Verified 01/30/23 00:26 FATHER "ALMOST FROM IT"--NEVER TOOK IT. Consultations 03/17/23 18:06 ED Decision to Admit Stat Hospital Course (1) COPD exacerbation: -Admit to [facility] on continuous pulse oximetry -Currently stable on RA -Negative for Covid/Influenza/RSV, CXR without obvious consolidation, procal negative -Given a dose of Ceftriaxone and Doxycycline in the ED, will continue with Doxycycline BID for now -Will obtain full respiratory biofire and sputum culture w/gram stain for further evaluation -S/P 60 mg IV Solu-medrol in the ED, continue with 60 mg IV daily for now, can transition to PO steroids when he's more stable -Continue home BID Symbicort, will continue with scheduled Levalbuterol for now due to his sinus tach on admission -Incentive spirometry, flutter therapy, scheduled Robitussin -BL SCD's and Sub-Q Lovenox for DVT PPX -AM CBC, BMP, Mag (2) Sinus tachycardia: -Noted to be in sinus tach with HR in the 110's in the ED -No chest pain, acute ST segment or T-wave changes noted -Likely due to his acute illness and dehydration -S/P 1L NSS in the ED, will give a liter of LR on admission (3) HFrEF (heart failure with reduced ejection fraction): -Examines dry-euvolemic -Continue IV fluids -Continue Entresto (4) BPH with obstruction/lower urinary tract symptoms: -Continue flomax Plan -The patient was discussed with Dr. Martel at the time of the admission -BL SCD's and Sub-Q lovenox for DVT PPX -Heart healthy diet Discharge Plan Discharge Items Patient Disposition: Home - Self-Care Reason For Visit: COPD exacerbation Discharge Diagnosis: 1. COPD exacerbation 2. Possible left sided pneumonia Activity: As commented below Activity Comment: gradually increase your activities over the next 1-2 weeks Sexual Activity: Wait until after follow-up appointment Exercise/Sports: Wait until after follow-up appointment Driving/Machine Use: No limitations Non-emergency contact: Primary Care Provider and Box Printer Call non-emergency contact if: you have any medication questions, your symptoms worsen and you have a fever Follow-up/Referrals: Tangela Martinez MD [Primary Care Provider] - 03/26/23 1:10 pm (THIS APPOINTMENT WILL BE WITH TUNG AT THE [facility] ([facility] IN FRONT OF THE H[facility])) Deonte Barnett MD [Outside Practitioners] - 03/22/23 (see your lung doctor as scheduled this ) Diet: Heart Healthy Addtl Attending Provider Instructions: Mr Moser, You were treated for COPD exacerbation and possible left-sided pneumonia with IV steroids, IV antibiotics, nebulizer treatments, and supportive care. You improved with the above measures. Fortunately you never required oxygen and you passed your walking oxygen test on the day of discharge (you do not need oxygen at home). Recommendations - 1. antibiotics for possible pneumonia - * cefdinir 300mg twice daily x 5 days, first dose as soon as you arrive home * doxycycline 100mg twice daily x 5 days, first dose TONIGHT at bedtime * occasionally doxycycline causes heartburn * it can also cause a rash if you go out in the sun while taking the doxycycline; thus, over the next week, cover up and use sunscreen if outside for long periods of time 2. for COPD exacerbation - * prednisone taper - start this on 03/21/23; take with food * ok to use [id number] mucinex up to 1200mg twice daily as needed for cough/congestion * continue albuterol neb treatments - 1 every 4-6 hours as needed for cough/wheeze/shortness of breath Follow-up - see separate section Return to [facility] if - * you have fevers over 100 degrees * you have worsening shortness of breath despite taking all of your usual COPD medications, steroids, etc * you have chest pains * you check your oxygen level on your finger at home and it reads less than 90% consistently (pulse ox readings) * any other concerns It was our pleasure to care for you! -Dr Patterson Pending Studies at Discharge: Yes Studies:: Sputum culture but thus far negative Stand-Alone Forms: My [facility], Smoking Cessation Medications and DC Order Prescriptions: New doxycycline hyclate 100 mg Capsule 100 mg PO BID 5 Days Qty: 10 0RF cefdinir 300 mg capsule 300 mg PO BID 5 Days Qty: 10 0RF prednisone 10 mg tablet 10 mg PO .daily as directed Qty: 25 0RF Rx Instructions: start 03/21/23 - 5 tabs PO QD x 1 day; 4 tabs PO QD x 2 days; 3 tabs PO QD x 2 days; 2 tabs PO QD x 2 days; 1 tab PO QD x 2 days. Take with food. Continued (DME) nebulizers [facility] [place] Dose Instructions .ROUTE .MEDSUPPLY Qty: 1 0RF Dose Instruction: As directed Rx Instructions: new nebulizer. Current nebulizer broken beyond repair. Lifetime need. Symbicort 160-4.5 mcg/actuation HFA aerosol inhaler 2 puff inhalation BID Qty: 3 3RF tamsulosin 0.4 mg capsule 0.4 mg PO BID Qty: 180 3RF atorvastatin 20 mg Tablet 40 mg PO QAM omeprazole 20 mg Capsule,Delayed Release(Dr/Ec) 20 mg PO BID metoprolol succinate 25 mg Tablet Extended Release 24 Hr 25 mg PO QPM Entresto 24-26 mg Tablet 1 tab PO BID aspirin 81 mg Tablet,Delayed Release (Dr/Ec) 81 mg PO QAM Discharge Orders: Discharge Order (Routine); Ordered 03/20/23 Ordered By: Remington Patterson Admission Data Admit Date/Time: 03/17/23 18:23 Attending Provider: Remington Patterson Admit Provider: Remington Martel Primary Care Provider: Tangela Martinez Other Providers: Remington Martel ; [facility] Other Interventions: Discharge Summary Assessment (RN) Last Done: 03/20/23 11:49 Coding Diagnoses COPD exacerbation J44.1 Sinus tachycardia R00.0 HFrEF (heart failure with reduced ejection fraction) I50.20 BPH with obstruction/lower urinary tract symptoms N40.1; N13.8
[2023-03-20] MEDS ORDERED: DOXYCYCLINE HYCLATE 100 MG CAP PO SCH (21:00)
== END 2023-03-20 12:45 | disposition home or self-care (01) | DRG 191 ==
LOC: ED 15:40 → SUATTDRO 18:23 → 2N 18:23